=== PATIENT | male | born 1930 | race Caucasian/White ===

== ENCOUNTER 2017-09-04 09:51 | Inpatient (IN) | payer OTHER, MEDICARE ==
[~2017-09-04] VITALS: Ht 172.7 cm; Wt 69.1 kg
[~2017-09-04 09:51] MED LIST: ALLOPURINOL300 M1 PO; AMLODIPINE BESY10 M1 PO; ASPIR 8181 M1 PO; GUANFACINE HCL2 M1 PO; LOVASTATIN40 M1 PO; METFORMIN HCL500 M4 PO; VALSARTAN-HCTZ1 EAC2 PO
--- NOTE | 2017-09-04 09:59 | ED MVC/FALL/TRAUMA COMPLAINT ---
History of Present Illness General Chief Complaint: Fall Stated Complaint: BIBA FALL Source: patient, family, EMS Exam Limitations: poor historian Vital Signs & Intake/Output Vital Signs & Intake/Output Vital Signs Date Time Temp Pulse Resp B/P B/P Pulse O2 O2 Flow FiO2 Mean Ox Delivery Rate 09/04 1252 90 18 160/80 95 Room Air 09/04 1227 97 18 195/88 96 Room Air 09/04 1214 102 178/88 04 1214 97.8 102 18 178/88 95 Room Air 09/04 1105 96 Room Air 09/04 0956 97.9 100 18 182/96 95 Room Air Allergies Coded Allergies: enalapril (UNKNOWN 09/01/15) Reconcile Medications Allopurinol 300 MG TABLET 1 TAB PO DAILY GOUT (Reported) Amlodipine Besylate 10 MG TABLET 1 TAB PO DAILY HEART (Reported) Aspirin (Aspir 81) 81 MG TABLET.DR 1 TAB PO DAILY HEART HEALTH (Reported) Guanfacine HCl 2 MG TABLET 1 TAB PO DAILY HEART (Reported) Lovastatin 40 MG TABLET 1 TAB PO DAILY CHOLESTEROL (Reported) Metformin HCl (Metformin HCl ER) 500 MG TAB.ER.24H 2 TAB PO BID DIABETES ( Reported) Valsartan/Hydrochlorothiazide (Valsartan-Hctz 160-25 MG Tab) 1 EACH TABLET 1 TAB PO DAILY HEART (Reported) Triage Note: 87M RADHA FROM [facility] S/P SLIDE DOWN BED X2 TO FLOOR AT FACILITY. -HEADSTRIKE -LOC AND DENIES ANY COMPLAINTS, PAIN, OR EXPERIENCING HEADACHE/ CP/SOB/PALPITATIONS/ABD PAIN/N/V/D. MILD NEURO DEFICITS AT BASELINE FOR CVA 2015. BP ELEVATED ON ARRIVAL AND NOTED TO HAVE IRREGULAR BRACHIAL PULSE ? ARRHYTHMA. PA NOTIFIED AND PLAN FOR EKG Triage Nurses Notes Reviewed? yes Onset: Just prior to arrival Duration: 2 episodes Timing: recent history Severity: moderate Injuries/Fall Location: upper extremity Method of Injury: fall Loss of Consciousness: no loss of consciousness Modifying Factors: Worsens With: movement, palpation. HPI: Patient is an 87-year-old male with history of hypertension, hyperlipidemia, diabetes and CVA about one and a half years ago presenting to the emergency department from nursing facility with chief complaint of 2 falls since yesterday evening. According to EMS, W 10 patient had a slip and fall yesterday evening where he was sitting on the edge of the bed and slowly lowered to the ground. There is no head strike or LOC according to EMS. This happened again this morning and decided to send the patient in for evaluation. Patient denying any chest pain palpitations or shortness of breath. Denies headaches or visual changes. According to family he has residual deficits from CVA a year and half ago with facial droop, and speech difficulties. Patient reporting left shoulder pain after the fall. Denies neck or back pain. Denies any urinary incontinence or retention. No nausea or vomiting. Denies recent illness. No fevers or chills. (Evelyn Grande) Past History Travel History Traveled to [place] past 21 day No Medical History Any Pertinent Medical History? 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 No (Evelyn Grande) Review of Systems Review of Systems Constitutional: Reports: see HPI, weakness. Comments Review of systems: See HPI, All other systems negative. Constitutional, no chills fever or weight loss HEENT: No visual changes no sore throat no congestion Cardiovascular: No chest pain ,palpitation , orthopnea or ankle swelling Skin, no jaundice no rashes Respiratory: No dyspnea cough sputum or hemoptysis GI: No nausea no vomiting : No dysuria No hematuria Muscle skeletal: no back pain, no neck pain, Neurologic: No numbness no increased confusion Psych: No stress anxiety or depression,. Heme/endocrine: no polyuria or polydipsia, on eliquis Immunology: No splenectomy or history of AIDS (Evelyn Grande) Physical Exam Physical Exam General Appearance: well developed/nourished, no apparent distress, alert, awake , comfortable Comments: Well-developed well-nourished person in no acute distress HEENT: extraocular motion intact, no nystagmus. Pupils equally round and reactive to light and accommodation. pupils approx 2mm bilaterally. slight erythema on left lower eyelid. Nose is atraumatic. External auditory canal and Tympanic membranes clear. Pharynx normal. No swelling or edema. uvula midline. tongue midline. Neck: Supple, no lymphadenopathy, normal range of motion without pain or tenderness, no c spine tenderness. Back: Nontender, no palpable pain noted over the cervical spine, thoracic or lumbar spine. No step-off deformity. No crepitus palpated. No signs of ecchymosis or trauma noted over the back. Cardiovascular: regular rate, irregular rythm. no audbile murmurs. no chest wall tenderness. slight pectus carinatum noted. Respiratory: Chest nontender. No respiratory distress.breath sounds diminished throughout to auscultation bilaterally Abdomen: Soft, nondistended, patient grimaces slightly with palpation in the right upper and lower quadrant. No appreciable organomegaly. Normal bowel sounds. No ascites, no rebound or gaurding. No signs of ecchymosis noted over the abdomen. Extremity: No edema, no calf tenderness to palpation, normal and equal pulses.left arm weakness, 2/5 against resistance. 3/5 in right upper and lower ext bilaterally. facial droop present which is old per family. Neuro: Alert oriented to person, place and time. confused about why he is at the emergency room, left arm weakness on exam, right sided facial droop noted. slurred speech at times. drift of left arm with pronator drift. sensation intact to touch on upper and lower extremities. Skin: Superficial skin abrasion noted to the left antecubital area, approximately 5 cm in size. No active bleeding. Psych: Mood and affect is normal, poor memory. Core Measures ACS in differential dx? Yes CVA/TIA Diagnosis No Sepsis Present: No Sepsis Focused Exam Completed? No (Nicole BRAUN,Evelyn) Progress Differential Diagnosis: cva,tia,sah, electrolyte abnormality, shoudler fx, shoulder dislocation, acs. Plan of Care: Orders Procedure Date/time Status CBC WITHOUT DIFFERENTIAL 09/05 599 Active BASIC ELECTROLYTES PLUS BUN&CR 09/05 599 Active Heart Healthy Diet 09/04 D Active Pathway - chart 09/04 1303 Active XRY-SHOULDER COMPLETE-LEFT 09/04 1204 Active XRY-ELBOW 3 OR MORE VIEWS, L 09/04 1204 Active Patient Data 09/04 1138 Active ED Holding Orders 09/04 1133 Active Admit to inpatient 09/04 1133 Active Vital Signs 09/04 1133 Active Code Status 09/04 1133 Active LIPID PANEL 09/04 1043 Active Intake & Output 09/04 1021 Active Add-on Test (ER Only) 09/04 1000 Active Telemetry/Pan Washer 09/04 958 Active URINALYSIS 09/04 958 Active TROPONIN LEVEL 09/04 958 Active PARTIAL THROMBOPLASTIN TIME 09/04 958 Complete PROTHROMBIN TIME 09/04 958 Complete COMPREHENSIVE METABOLIC PANEL 09/04 958 Active CREATINE PHOSPHOKINASE 09/04 958 Active CBC WITHOUT DIFFERENTIAL 09/04 958 Complete EKG 09/04 958 Active SWALLOW EVALUATION 09/04 UNK Active Lab Add-on Test 09/04 UNK Active VTE Mechanical Prophylaxis 09/04 UNK Active Activity/Ambulation 09/04 UNK Active Laboratory Tests 09/04/17 1257: Triglycerides Cancelled, Cholesterol Cancelled, LDL Cholesterol, Calc Cancelled, HDL Cholesterol Cancelled, Cholesterol/HDL Ratio Cancelled 09/04/17 1043: Anion Gap 11, Estimated GFR > 60, BUN/Creatinine Ratio 28.6 H, Glucose 151 H, Calcium 9.7, Total Bilirubin 0.7, AST 21, ALT 29, Alkaline Phosphatase 115, Creatine Kinase 34 L, Troponin I < 0.01, Total Protein 6.7, Albumin 3.7, Globulin 3.0, Albumin/Globulin Ratio 1.2, Triglycerides Pending, Cholesterol Pending, LDL Cholesterol, Calc Pending, HDL Cholesterol Pending, Cholesterol/HDL Ratio Pending, PT 16.0 H, INR 1.46 H, APTT 39 H, CBC w Diff NO MAN DIFF REQ, RBC 5.44, MCV 82.1, MCH 26.4 L, MCHC 32.1 L, RDW 16.7 H, MPV 9.1, Gran % 82.5 H, Lymphocytes % 9.3 L, Monocytes % 7.9, Eosinophils % 0.1, Basophils % 0.2, Absolute Granulocytes 7.2 H, Absolute Lymphocytes 0.8 L, Absolute Monocytes 0.7 H, Absolute Eosinophils 0, Absolute Basophils 0 09/04/2017 1:16:[address] Duff, covering neurologist regarding patient' s symptomatology and presentation. Recommending housestaff to consult him formally. Unclear when symptoms started exactly as follows unwitnessed. Patient reports that he just went off the bed but is confused as to why he is in the emergency department. Story is not clear. Patient admitted for syncope, hypertension, questionable CVA. d/w dr baker, not a stroke alert due to unknown start time of left arm weakness. Diagnostic Imaging: Viewed by Me: Radiology Read, CT Scan. Discussed w/RAD: Radiology Read, CT Scan. Radiology Impression: PATIENT: ROE HESS PRESENT AGE: 87 PATIENT ACCOUNT NO: [id number] : 30 LOCATION: ER ORDERING PHYSICIAN: Evelyn BRAUN SERVICE DATE: 09/04/17 EXAM TYPE: CAT - CT CERV SPINE WO IV CONTRAST; CT HEAD WO IV CONTRAST EXAMINATION: CT HEAD WITHOUT CONTRAST CT CERVICAL SPINE WITHOUT CONTRAST CLINICAL INFORMATION: Left arm weakness. COMPARISON: None TECHNIQUE: CT of the head and cervical spine were performed without intravenous contrast. Multiplanar reformats were rendered and reviewed. DLP: 902 mGy-cm. FINDINGS: CT head: There is no intracranial hemorrhage, extra-axial collection, or calvarial fracture. There is no mass, mass effect, or CT evidence of large territory infarction. There is moderate scattered hypoattenuation in the bilateral cerebral white matter, which is nonspecific but likely reflects small vessel disease. There is a chronic lacunar infarct in the left putamen. There is mild diffuse brain parenchymal volume loss with prominence of the ventricles and sulci. There is no evidence of hydrocephalus. The paranasal sinuses are clear. The mastoids and middle ear cavities are clear. There are atherosclerotic calcification of the carotid siphons and vertebral arteries. The right sigmoid plate is dehiscent into the mesotympanum. CT cervical spine: The cervical vertebral body heights are maintained. There is multilevel mild stepwise anterolisthesis of C4 on C5, C5 on C6, C6 on C7, and C7 on T1 and related to advanced degenerative facet arthropathy. There is no evidence of traumatic malalignment. The craniovertebral junction is intact. There is multilevel disc height loss including at C4-C5, C5- C6, and C6-C7. There is multilevel facet ankylosis. There is no high-grade osseous encroachment on the spinal canal. There is multilevel neural foraminal stenosis. There are atheromatous changes in the major neck vessels. There is a large right pleural effusion. The left lung apex is clear with paraseptal emphysema noted. IMPRESSION: CT head: No acute intracranial abnormality. Chronic left putamen lacunar infarct and background changes of moderate small vessel ischemia. CT cervical spine: No cervical spine fracture or traumatic malalignment. Advanced multilevel degenerative changes as above. Partially imaged large right pleural effusion. DICTATED BY: Gerri Wood MD DATE/TIME DICTATED:09/04/171048 HVAC SERVICE TECHNICIAN:KAYLEN DATE/TIME TRANSCRIBED:1048 CONFIDENTIAL, DO NOT COPY WITHOUT APPROPRIATE AUTHORIZATION. < Electronically signed in Other Vendor System> SIGNED BY: Gerri Wood MD 09/04/171103, PATIENT: ROE HESS PRESENT AGE: 87 PATIENT ACCOUNT NO: [id number] : 30 LOCATION: [facility] ORDERING PHYSICIAN: William Baker MD SERVICE DATE: 09/04/17 EXAM TYPE: CAT - CT CHEST WO IV CONTRAST EXAMINATION: CT CHEST WITHOUT CONTRAST CLINICAL INFORMATION: White out of right lung. COMPARISON: Chest radiographs 09/01/2015. TECHNIQUE: Multidetector volumetric CT imaging of the chest was done. Axial MIP volume rendering provided. Sagittal and coronal reformatted images were obtained. DLP: 323 mGy-cm FINDINGS: LUNGS/PLEURA: The central airways are patent. There is a large right pleural effusion with associated complete collapse of the right lower lobe. No obstructing endobronchial mass is seen. The right upper and middle lobes are clear. The left lung is clear except for some paraseptal emphysematous change at the apex. There is trace left pleural effusion. MEDIASTINUM: No mediastinal adenopathy. The heart is not enlarged. No mediastinal adenopathy. Atheromatous changes involving the coronary arteries, aortic arch, and great vessel origins. AXILLA: No lymphadenopathy. UPPER ABDOMEN : Nonenhanced evaluation of the upper abdomen is within normal limits. OSSEOUS STRUCTURES: Multilevel degenerative changes in the thoracic spine. No fracture or destructive osseous lesion. IMPRESSION: - Large right pleural effusion with complete collapse of the right lower lobe. No evidence of endobronchial obstructing lesion. Trace left pleural effusion. - Aerated lungs are clear. - No mediastinal adenopathy. DICTATED BY: Gerri Wood MD DATE/TIME DICTATED:09/04 HVAC SERVICE TECHNICIAN:KAYLEN DATE/TIME TRANSCRIBED:09/04/171100 CONFIDENTIAL, DO NOT COPY WITHOUT APPROPRIATE AUTHORIZATION. <Electronically signed in Other Vendor System> SIGNED BY: Gerri Wood MD 09/04/17 1112 Initial ED EKG: AFIB (Evelyn Grande) Departure Departure Time of Disposition: 1205 Clinical Impression Primary Impression: Pleural effusion Secondary Impressions: Arm weakness Hypertension Qualifiers: Hypertension type: unspecified Qualified Code: I10 - Essential ( primary) hypertension Syncope Qualifiers: Syncope type: unspecified Qualified Code: R55 - Syncope and collapse Referrals: George Contreras MD (PCP/Family) Departure Forms: Customer Survey General Discharge Information (Evelyn Grande) Departure Disposition: STILL A PATIENT Condition: Guarded Admission Note Spoke With: Zuleima CAMPBELL,Juanita Documentation of Exam: Documentation of any treatments & extenuating circumstances including Concerns Regarding Discharge (functional status, medication knowledge or non-compliance, living conditions, etc.) that warrant an admission rather than observation: [ TELE ADMISSION, IRDRAIANGE OF EFFUSION ANDSEND FLUID TO LAB FOR CYTOLOGY AND CELL COUNT, PULM CONSULT, CARDIOLOGY CONSULT, SERIAL ENZYMES.] PA/COMPLAINT COORDINATOR Co-Sign Statement Statement: ED Attending supervision documentation- [X] I saw and evaluated the patient. I have also reviewed all the pertinent lab results and diagnostic results. I agree with the findings and the plan of care as documented in the PA's/COMPLAINT COORDINATOR's documentation. [X] I have reviewed the ED Record and agree with the PA's/COMPLAINT COORDINATOR's documentation. [] Additions or exceptions (if any) to the PAs/COMPLAINT COORDINATOR's note and plan are summarized below: [SEE ABOVE NOTE] (Samuel CAMPBELL,William Vieira) Critical Care Note Critical Care Note Critical Care Time: 30-74 min (Evelyn Grande)
[2017-09-04 11:04] LABS: ABSOLUTE BASOPHIL COUNT 0 /CUMM (0.0-0.2); ABSOLUTE EOSINOPHIL COUNT 0 /CUMM (0.0-0.7); ABSOLUTE GRANULOCYTE CT 7.2 /CUMM (1.4-6.5); ABSOLUTE LYMPH COUNT 0.8 /CUMM (1.2-3.4); ABSOLUTE MONOCYTE COUNT 0.7 /CUMM (0.10-0.60); BASOPHIL % 0.2 % (0.0-2.0); EOSINOPHIL % 0.1 % (0-5); GRANULOCYTE % 82.5 % (42.2-75.2); HEMATOCRIT 44.7 % (42-52); MEAN CORPUSCULAR HGB 26.4 PG (27.0-31.0); MEAN CORPUSCULAR HGB CONC 32.1 G/DL (33.0-37.0); MEAN CORPUSCULAR VOLUME 82.1 FL (80.0-94.0); MEAN PLATELET VOLUME 9.1 FL (7.4-10.4); PLATELET COUNT 256 /CUMM (130-400); RBC DISTRIBUTION WIDTH 16.7 % (11.5-14.5); RED BLOOD CELL CT 5.44 /CUMM (4.70-6.10); WHITE BLOOD CELL COUNT 8.7 /CUMM (4.8-10.8)
--- NOTE | 2017-09-04 11:04 | CT SCAN REPORT ---
EXAMINATION: CT HEAD WITHOUT CONTRAST CT CERVICAL SPINE WITHOUT CONTRAST CLINICAL INFORMATION: Left arm weakness. COMPARISON: None TECHNIQUE: CT of the head and cervical spine were performed without intravenous contrast. Multiplanar reformats were rendered and reviewed. DLP: 902 mGy-cm. FINDINGS: CT head: There is no intracranial hemorrhage, extra-axial collection, or calvarial fracture. There is no mass, mass effect, or CT evidence of large territory infarction. There is moderate scattered hypoattenuation in the bilateral cerebral white matter, which is nonspecific but likely reflects small vessel disease. There is a chronic lacunar infarct in the left putamen. There is mild diffuse brain parenchymal volume loss with prominence of the ventricles and sulci. There is no evidence of hydrocephalus. The paranasal sinuses are clear. The mastoids and middle ear cavities are clear. There are atherosclerotic calcification of the carotid siphons and vertebral arteries. The right sigmoid plate is dehiscent into the mesotympanum. CT cervical spine: The cervical vertebral body heights are maintained. There is multilevel mild stepwise anterolisthesis of C4 on C5, C5 on C6, C6 on C7, and C7 on T1 and related to advanced degenerative facet arthropathy. There is no evidence of traumatic malalignment. The craniovertebral junction is intact. There is multilevel disc height loss including at C4-C5, C5-C6, and C6-C7. There is multilevel facet ankylosis. There is no high-grade osseous encroachment on the spinal canal. There is multilevel neural foraminal stenosis. There are atheromatous changes in the major neck vessels. There is a large right pleural effusion. The left lung apex is clear with paraseptal emphysema noted. IMPRESSION: CT head: No acute intracranial abnormality. Chronic left putamen lacunar infarct and background changes of moderate small vessel ischemia. CT cervical spine: No cervical spine fracture or traumatic malalignment. Advanced multilevel degenerative changes as above. Partially imaged large right pleural effusion.
[2017-09-04 11:08] LABS: PTT 39 SEC (25-37)
--- NOTE | 2017-09-04 11:12 | CT SCAN REPORT ---
EXAMINATION: CT CHEST WITHOUT CONTRAST CLINICAL INFORMATION: White out of right lung. COMPARISON: Chest radiographs 09/01/2015. TECHNIQUE: Multidetector volumetric CT imaging of the chest was done. Axial MIP volume rendering provided. Sagittal and coronal reformatted images were obtained. DLP: 323 mGy-cm FINDINGS: LUNGS/PLEURA: The central airways are patent. There is a large right pleural effusion with associated complete collapse of the right lower lobe. No obstructing endobronchial mass is seen. The right upper and middle lobes are clear. The left lung is clear except for some paraseptal emphysematous change at the apex. There is trace left pleural effusion. MEDIASTINUM: No mediastinal adenopathy. The heart is not enlarged. No mediastinal adenopathy. Atheromatous changes involving the coronary arteries, aortic arch, and great vessel origins. AXILLA: No lymphadenopathy. UPPER ABDOMEN: Nonenhanced evaluation of the upper abdomen is within normal limits. OSSEOUS STRUCTURES: Multilevel degenerative changes in the thoracic spine. No fracture or destructive osseous lesion. IMPRESSION: - Large right pleural effusion with complete collapse of the right lower lobe. No evidence of endobronchial obstructing lesion. Trace left pleural effusion. - Aerated lungs are clear. - No mediastinal adenopathy.
--- NOTE | 2017-09-04 11:45 | History & Physical ---
See Addendum General Information and HPI MD Statement: I have seen and personally examined ROE HESS and documented this H&P. The patient is a 87 year old M who presented with a patient stated chief complaint of [fall]. Source of Information: patient, family Exam Limitations: dementia History of Present Illness: Patient is 87 years old male with PMH of HTN, HLD, CVA, DM, [facility] who [facility] from [facility] with the chief complain of fall. As per his sons, he fell twice, *once last night and again this morning). Patient does not remember his fall from the morning. He was discovered by the [facility] house staff on the floor and it is unknwon if he had any loss of consciousness. Family reports that since yesterday, they have noticed that his left side is weaker and his speech is comparetively more slurred. Patient however feels well and does not report of anything. Denies chest pain, difficulty breathing, abdominal discomfort, dizziness, burning micturation etc. Patient is wheel chair bound and was admitted in [facility] last year for ischemic stroke. He was not given any medications at the rehab. Allergies/Medications Allergies: Coded Allergies: enalapril (UNKNOWN 09/01/15) Home Med list Allopurinol 300 MG TABLET 1 TAB PO DAILY GOUT (Reported) Amlodipine Besylate 10 MG TABLET 1 TAB PO DAILY HEART (Reported) Aspirin (Aspir 81) 81 MG TABLET.DR 1 TAB PO DAILY HEART HEALTH (Reported) Guanfacine HCl 2 MG TABLET 1 TAB PO DAILY HEART (Reported) Lovastatin 40 MG TABLET 1 TAB PO DAILY CHOLESTEROL (Reported) Metformin HCl (Metformin HCl ER) 500 MG TAB.ER.24H 2 TAB PO BID DIABETES ( Reported) Valsartan/Hydrochlorothiazide (Valsartan-Hctz 160-25 MG Tab) 1 EACH TABLET 1 TAB PO DAILY HEART (Reported) Compliance With Home Meds: GOOD Past History Travel History Traveled to [place] past 21 day No Medical History Neurological: CVA (2016) EENT: NONE Cardiovascular: hypertension, hyperlipidemia Respiratory: NONE Gastrointestinal: NONE Hepatic: NONE Renal: NONE Musculoskeletal: NONE Psychiatric: NONE Endocrine: diabetes Blood Disorders: NONE Cancer(s): prostate cancer [employer]ELOPMENT/Reproductive: NONE Surgical History Surgical History: non-contributory Past Family/Social History Psychosocial History Where do you live? Extended Care Facility Review of Systems Review of Systems Constitutional: Reports: see HPI. Exam & Diagnostic Data Last 24 Hrs of Vital Signs/I&O Vital Signs Date Time Temp Pulse Resp B/P B/P Pulse O2 O2 Flow FiO2 Mean Ox Delivery Rate 09/04 1252 90 18 160/80 95 Room Air 09/04 1227 97 18 195/88 96 Room Air 09/04 1214 102 178/88 09/04 1214 97.8 102 18 178/88 95 Room Air 09/04 1105 96 Room Air 09/04 0956 97.9 100 18 182/96 95 Room Air Physical Exam General Appearance Alert, Oriented X3, Cooperative Skin tear on left elbow covered with a bandage Skin Temp/Moisture Exam: Warm/Dry HEENT Atraumatic, PERRLA Neck Supple Cardiovascular Normal S1, Normal S2, irregular Lungs dec airmovement on right side, normal breathsounds left side Abdomen Soft, No Tenderness Neurological Normal Speech, decreased strength in left arm and left leg Body Front and Back (Adult) 1) Last 24 Hrs of Labs/Carl: Laboratory Tests 09/04/17 1257: Triglycerides Cancelled, Cholesterol Cancelled, LDL Cholesterol, Calc Cancelled, HDL Cholesterol Cancelled, Cholesterol/HDL Ratio Cancelled 09/04/17 1043: Anion Gap 11, Estimated GFR > 60, BUN/Creatinine Ratio 28.6 H, Glucose 151 H, Calcium 9.7, Total Bilirubin 0.7, AST 21, ALT 29, Alkaline Phosphatase 115, Creatine Kinase 34 L, Troponin I < 0.01, Total Protein 6.7, Albumin 3.7, Globulin 3.0, Albumin/Globulin Ratio 1.2, Triglycerides Pending, Cholesterol Pending, LDL Cholesterol, Calc Pending, HDL Cholesterol Pending, Cholesterol/HDL Ratio Pending, PT 16.0 H, INR 1.46 H, APTT 39 H, CBC w Diff NO MAN DIFF REQ, RBC 5.44, MCV 82.1, MCH 26.4 L, MCHC 32.1 L, RDW 16.7 H, MPV 9.1, Gran % 82.5 H, Lymphocytes % 9.3 L, Monocytes % 7.9, Eosinophils % 0.1, Basophils % 0.2, Absolute Granulocytes 7.2 H, Absolute Lymphocytes 0.8 L, Absolute Monocytes 0.7 H, Absolute Eosinophils 0, Absolute Basophils 0 Assessment/Plan Assessment: Patient is 87 years old male with PMH of HTN, HLD, CVA, DM, a fib on eliquis who was brought in from [facility] with the chief complain of fall. As per his sons, he fell twice, *once last night and again this morning). Patient does not remember his fall from the morning. He was discovered by the nursining house staff on the floor and it is unknwon if he had any loss of consciousness. Vitals on admission BP: 185/88, Pulse 100, saturating above 94% on room air Immiging results: CT Chest: - Large right pleural effusion with complete collapse of the right lower lobe. No evidence of endobronchial obstructing lesion. Trace left pleural effusion. - Aerated lungs are clear. - No mediastinal adenopathy. CT head: No acute intracranial abnormality. Chronic left putamen lacunar infarct and background changes of moderate small vessel ischemia. CT cervical spine: No cervical spine fracture or traumatic malalignment. Advanced multilevel degenerative changes as above. Partially imaged large right pleural effusion. Assessment and plan: Will admit the patient to telemetry. It is difficult to say if his neuro symptoms are new of old as patient clearly can not recall if something has changed. Will hold aspirin for now as he will need an IR guided right side drainage for right sided pleural effusion tomorrow. Will also hold his eliquis. Will continue all home meds including; diltiazem, allopurinol, escitalopram, mirtazipine, tamsulosin, trazodone. will start low does SS and order figer sticks. will put patient on q 4 neuro checks. DVT ppx alps for now Patient is full code As Ranked By This Provider Problem List: 1. Fall Core Measures/Misc (02/13) Acute Coronary Syndrome ACS Diagnosis: No Congestive Heart Failure Congestive Heart Failure Diagnosis No Cerebrovascular Accident CVA/TIA Diagnosis: No VTE (View Protocol) VTE Risk Factors Age>40 No Mechanical VTE Prophylaxis d/t N/A MechProphylax Ordered No VTE Pharm Prophylaxis d/t NA PharmProphylax ordered Sepsis (View protocol) Sepsis Present: No
--- NOTE | 2017-09-04 13:08 | Admission Certification ---
Admission Certification Certification Statement - As attending physician, I certify that at the time of - admission, based on clinical presentation, severity of - symptoms, need for further diagnostic testing and - therapeutic interventions, and risk of adverse outcomes - without in-hospital treatment, in my clinical assessment, - this patient requires an acute hospital stay for a minimum - of two nights or longer. I have also considered psychsocial - factors such as support system, advanced age, financial - issues, cognitive issues, and failed out-patient treatments, - past re-admission history, safety of patient, and lack of - compliance as applicable. Specific rationale supporting this admission is: large right loculated pleural effusion
--- NOTE | 2017-09-04 13:20 | PN- Att Addend ---
Attending Addendum Attending Brief Note Patient seen and examined. Plan of care discussed with the medical team and the patient. Available lab work and radiology test reports were reviewed. Patient is an 87-year-old male with history of hypertension, hyperlipidemia, diabetes and CVA about one and a half years ago presenting to the emergency department from nursing facility with chief complaint of 2 falls since yesterday evening. During evaluation a CT scan of the chest showed a right large loculated effusion. Exam: General: Patient awake but lethargic and partially oriented without any distress CVS: S1 plus S2 without any murmur or gallops Chest: Right chest is dull to percussion , Few scattered crepitation without any wheeze. There is no respiratory distress. Abdomen: Soft non-tender, bowel sound present, no guarding or rebound SQL REPORT ANALYST: Awake lethargic and partially oriented; persistent facial droop is noted; Extremities: No edema; no clubbing or cyanosis noted Assessment * Multiple falls * History of CVA * Right-sided loculated effusion- etiology could include CHF, hemothorax, malignancy etc. * History of A. fib currently on eliquis Plan * Hold eliquis in anticipation of right thoracentesis * Neurology consult for concerns with worsening symptoms of stroke * Continue other home medications * Add Lipitor * Arrange for right thoracentesis Current Medications Sig/Jose Angel Start time Last Medication Dose Route Stop Time Status Admin Hydralazine HCl 5 MG ONCE ONE 09/04 1215 DC 09/04 IV 09/04 1216 1214 Hydralazine HCl 0 .STK-MED ONE 09/04 1214 DC .ROUTE Laboratory Tests 09/04/17 1257: Triglycerides Cancelled, Cholesterol Cancelled, LDL Cholesterol, Calc Cancelled, HDL Cholesterol Cancelled, Cholesterol/HDL Ratio Cancelled 09/04/17 1043: Anion Gap 11, Estimated GFR > 60, BUN/Creatinine Ratio 28.6 H, Glucose 151 H, Calcium 9.7, Total Bilirubin 0.7, AST 21, ALT 29, Alkaline Phosphatase 115, Creatine Kinase 34 L, Troponin I < 0.01, Total Protein 6.7, Albumin 3.7, Globulin 3.0, Albumin/Globulin Ratio 1.2, PT 16.0 H, INR 1.46 H, APTT 39 H, CBC w Diff NO MAN DIFF REQ, RBC 5.44, MCV 82.1, MCH 26.4 L, MCHC 32.1 L, RDW 16.7 H, MPV 9.1, Gran % 82.5 H, Lymphocytes % 9.3 L, Monocytes % 7.9, Eosinophils % 0.1, Basophils % 0.2, Absolute Granulocytes 7.2 H, Absolute Lymphocytes 0.8 L, Absolute Monocytes 0.7 H, Absolute Eosinophils 0, Absolute Basophils 0 Vital Signs Date Time Temp Pulse Resp B/P B/P Pulse O2 O2 Flow FiO2 Mean Ox Delivery Rate 09/04 1252 90 18 160/80 95 Room Air 09/04 1227 97 18 195/88 96 Room Air 09/04 1214 102 178/88 09/04 1214 97.8 102 18 178/88 95 Room Air 09/04 1105 96 Room Air 09/04 0956 97.9 100 18 182/[address] Chest Patient is an 87-year-old male with history of hypertension, hyperlipidemia, diabetes and CVA about one and a half years ago presenting to the emergency department from nursing facility with chief complaint of 2 falls since yesterday evening. CT head: No acute intracranial abnormality. Chronic left putamen lacunar infarct and background changes of moderate small vessel ischemia. CT cervical spine: No cervical spine fracture or traumatic malalignment. Advanced multilevel degenerative changes as above. Partially imaged large right pleural effusion.
--- NOTE | 2017-09-04 14:54 | RADIOLOGY REPORT ---
EXAMINATION: XR SHOULDER, LEFT XR ELBOW, LEFT CLINICAL INFORMATION: Pain, status post fall. COMPARISON: Chest CT scan earlier today. TECHNIQUE: 3 views of the left shoulder were obtained. 3 views of the left elbow were obtained. FINDINGS: LEFT SHOULDER: No acute fracture or dislocation demonstrated. The humeral head appears well aligned with the glenoid. Mild hypertrophic changes at the glenohumeral joint. No widening of the acromioclavicular joint. Chronic-appearing calcific focus along the cephalad aspect of the acromioclavicular joint. Decreased bone mineral density. LEFT ELBOW: No fracture or dislocation. No significant cartilage space narrowing. Mild hypertrophic changes along the medial and lateral humeral epicondyles. Decreased bone mineral density. No significant elevation of the anterior posterior fat pads demonstrated. Possible focus of subcutaneous gas along the posterior elbow; please correlate for laceration. IMPRESSION: 1. No acute osseous abnormalities of the left shoulder or left elbow. 2. Suspect a focus of subcutaneous gas along the posterior elbow. Please correlate for local laceration. 3. Decreased bone mineral density. If there is high clinical suspicion for fracture, consider further evaluation with MRI or CT scan to assess for radiographically occult osseous injury.
--- NOTE | 2017-09-04 15:24 | Cons- Neurology ---
General Information and HPI Consulting Request Date of Consult: 09/04/17 Requested By: Zuleima CAMPBELL,Juanita History of Present Illness: 87 year-old male brought in from an extended care facility reportedly due to heightened left-sided weakness of one-day duration. Patient carries a history of prior CVA. The extent of his residual weakness is unclear and the patient is an extremely poor historian. We do know that he is wheelchair bound. Upon arrival to the emergency department he was also found to have a large pleural effusion and therefore he is being admitted for further evaluation and treatment. The patient denies any headache. He has had 2 reported falls over the last 36 hours. Allergies/Medications Allergies: Coded Allergies: enalapril (UNKNOWN 09/01/15) Home Med List: Allopurinol 300 MG TABLET 1 TAB PO DAILY GOUT (Reported) Amlodipine Besylate 10 MG TABLET 1 TAB PO DAILY HEART (Reported) Aspirin (Aspir 81) 81 MG TABLET.DR 1 TAB PO DAILY HEART HEALTH (Reported) Guanfacine HCl 2 MG TABLET 1 TAB PO DAILY HEART (Reported) Lovastatin 40 MG TABLET 1 TAB PO DAILY CHOLESTEROL (Reported) Metformin HCl (Metformin HCl ER) 500 MG TAB.ER.24H 2 TAB PO BID DIABETES ( Reported) Valsartan/Hydrochlorothiazide (Valsartan-Hctz 160-25 MG Tab) 1 EACH TABLET 1 TAB PO DAILY HEART (Reported) Review of Systems Review of Systems: Limited due to his mental status Past History Travel History Traveled to [place] past 21 day No Medical History Neurological: CVA (2016) EENT: NONE Cardiovascular: hypertension, hyperlipidemia Respiratory: NONE Gastrointestinal: NONE Hepatic: NONE Renal: NONE Musculoskeletal: NONE Psychiatric: NONE Endocrine: diabetes Blood Disorders: NONE Cancer(s): 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 Extended Care Facility Exam & Diagnostic Data Vital Signs and I&O Vital Signs Date Time Temp Pulse Resp B/P B/P Pulse O2 O2 Flow FiO2 Mean Ox Delivery Rate 09/04 1252 90 18 160/80 95 Room Air 09/04 1227 97 18 195/88 96 Room Air 09/04 1214 102 178/88 09/04 1214 97.8 102 18 178/88 95 Room Air 09/04 1105 96 Room Air 09/04 0956 97.9 100 18 182/96 95 Room Air Elderly male, awake, alert and in no acute distress. He was disoriented to time. He knew that he was in [facility]. He could not name the current president. Speech was fluent. Pupils were equal. Extraocular movements were full. There was flattening of the right nasolabial fold. There was no dysarthria. Motor examination revealed significant weakness of the left upper extremity. He could not resist gravity. There appeared to be mild weakness of the proximal left lower extremity. Deep tendon reflexes were hypoactive. Plantar responses were flexor. The gait was not evaluated. CAT scan of the brain on admission just showed the presence of a small left subcortical infarct of indeterminate age. 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 Assessment/Plan Assessment: Mr. Cornejo presents with reportedly heightened left-sided weakness. He indeed has marked weakness of the left upper extremity. Curiously, if this were due to an old stroke, we do not see any significant abnormalities in the right hemisphere. His examination now also suggests associated dementia. I question as to whether this is chronic Recommendations: The patient will be admitted for workup of his pleural effusion and would also merit an MRI of the brain. Physical and occupational therapy should be asked to assist. DVT precautions should be put into place. He should be maintained on a statin and aspirin. Would get a TSH and B12 level. Old records would be helpful to establish his baseline. Consult Acknowledgment - Thank you for your consult request.
[2017-09-04 15:30] VITALS: BP 160/80
[2017-09-04 21:07] VITALS: BP 140/80
[2017-09-05 07:01] VITALS: BP 116/64
--- NOTE | 2017-09-05 07:17 | PN- Housestaff ---
[place] CAMPBELL,[facility] 09/05/17 0716: Subjective Follow-up For: Multiple falls History of CVA Tele-Events Since Last Visit: A Fib 44-89 Subjective: Mr Cornejo was seen and examined this morning. He is resting comfortably in bed. Denies any issues overnight. He was able to get some rest. Currently awaiting to undergo further testing (MRI scheduled) for later today. He denies any fever, chills, nausea, vomiting. Has not attempted to move from bed denies any lightheadedness or weakness. He is currently nothing by mouth pending a formal swallow evaluation. Spoke extensively with family, 2 sons, grandson, daughter in law they were updated on the plan. Review of Systems Constitutional: Reports: see HPI. Objective Last 24 Hrs of Vital Signs/I&O Vital Signs Date Time Temp Pulse Resp B/P B/P Pulse O2 O2 Flow FiO2 Mean Ox Delivery Rate 09/05 0701 97.4 63 12 116/64 95 Room Air 09/05 0000 Room Air 09/04 2245 97 152/90 09/04 2107 98.2 113 20 140/80 95 Room Air 09/04 1848 114 08 1848 114 09/04 1600 Room Air 09/04 1530 98.3 100 20 160/80 95 Room Air 09/04 1252 90 18 160/80 95 Room Air 09/04 1227 97 18 195/88 96 Room Air 09/04 1214 102 178/88 09/04 1214 97.8 102 18 178/88 95 Room Air 09/04 1105 96 Room Air 09/04 0956 97.9 100 18 182/96 95 Room Air Intake & Output 09/05 1600 09/05 0800 09/05 0000 Intake Total 0 250 Output Total Balance 0 250 Intake, Oral 0 250 Number 3 Bowel Movements Patient 69.967 kg Weight Weight Bed scale Measurement Method Physical Exam General Appearance: Alert, Oriented X3, Cooperative Cardiovascular: Normal S1, Normal S2, Irregular HR Lungs: Clear to Auscultation Abdomen: Normal Bowel Sounds, Soft, No Tenderness Neurological: Normal Speech, Cranial Nerves 3-12 NL, Right Upper extemity 4/5 Right lower extremity 4/5. Left Upper Extemity 1/5 Left Lower Extety 1/5 Extremities: No Edema Current Medications: Current Medications Sig/Jose Angel Start time Last Medication Dose Route Stop Time Status Admin Allopurinol 100 MG DAILY 09/04 1336 AC 09/04 PO 1848 Artificial Tears 2 GTT 4 TIMES/DAY 09/04 1400 AC 09/04 OPH 2230 Atorvastatin Calcium 80 MG 1700 09/05 1700 AC PO Diltiazem HCl 90 MG Q6 09/04 2359 AC 09/05 PO 0600 Diltiazem HCl 180 MG BID 09/04 1335 DC 09/04 PO 1848 Hydralazine HCl 5 MG ONCE ONE 09/04 1215 DC 09/04 IV 09/04 1216 1214 Hydralazine HCl 0 .STK-MED ONE 09/04 1214 DC .ROUTE Influenza Virus 0.5 ML ONCE ONE 09/04 1630 CAN Vaccine IM 09/05 1999 Insulin Aspart 0 TIDAC 09/04 1700 AC SC Magnesium Oxide 200 MG DAILY 09/04 1335 AC 09/04 PO 1848 Mirtazapine 7.5 MG AT BEDTIME 09/04 2200 AC 09/04 PO 2228 Senna/Docusate Sodium 2 TAB DAILY 09/05 1000 AC PO Tamsulosin HCl 0.4 MG DAILY 09/04 1334 AC 09/04 PO 1848 Trazodone HCl 37.5 MG AT BEDTIME 09/04 2200 AC 09/04 PO 2230 Last 24 Hrs of Lab/Carl Results Last 24 Hrs of Labs/Mics: Laboratory Tests 09/05/17 0638: Anion Gap 12, Estimated GFR > 60, BUN/Creatinine Ratio 27.1 H, CBC w Diff NO MAN DIFF REQ, RBC 5.00, MCV 82.1, MCH 27.0, MCHC 32.8 L, RDW 17.0 H, MPV 9.5, Gran % 73.1, Lymphocytes % 14.3 L, Monocytes % 11.3 H, Eosinophils % 0.7, Basophils % 0.6, Absolute Granulocytes 5.5, Absolute Lymphocytes 1.1 L, Absolute Monocytes 0.9 H, Absolute Eosinophils 0.1, Absolute Basophils 0 09/04/17 1257: Triglycerides Cancelled, Cholesterol Cancelled, LDL Cholesterol, Calc Cancelled, HDL Cholesterol Cancelled, Cholesterol/HDL Ratio Cancelled 09/04/17 1043: Anion Gap 11, Estimated GFR > 60, BUN/Creatinine Ratio 28.6 H, Glucose 151 H, Calcium 9.7, Total Bilirubin 0.7, AST 21, ALT 29, Alkaline Phosphatase 115, Creatine Kinase 34 L, Troponin I < 0.01, Ksp-D-Sgfevehqgca Pept 2390 H, Total Protein 6.7, Albumin 3.7, Globulin 3.0, Albumin/Globulin Ratio 1.2, Triglycerides 82, Cholesterol 192, LDL Cholesterol, Calc 113, HDL Cholesterol 63 H, Cholesterol/HDL Ratio 3, Vitamin B12 357, TSH 1.740, PT 16.0 H, INR 1.46 H , APTT 39 H, CBC w Diff NO MAN DIFF REQ, RBC 5.44, MCV 82.1, MCH 26.4 L, MCHC 32.1 L, RDW 16.7 H, MPV 9.1, Gran % 82.5 H, Lymphocytes % 9.3 L, Monocytes % 7.9, Eosinophils % 0.1, Basophils % 0.2, Absolute Granulocytes 7.2 H, Absolute Lymphocytes 0.8 L, Absolute Monocytes 0.7 H, Absolute Eosinophils 0, Absolute Basophils 0 Assessment/Plan Assessment: Patient is 87 year old male with PMH of HTN, HLD, CVA, DM, a fib on eliquis who was brought in from [facility] with the chief complain of fall. 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 Patient does not remember his fall from the morning. He was discovered by the [facility] house staff on the floor and it is unknown if he had any loss of consciousness. Assessment and plan: Will admit the patient to telemetry. It is difficult to say if his neuro symptoms are new of old as patient clearly can not recall if something has changed. -Pending results of MRI study scheduled for later today. -Continue aspirin. -Continue statin. -Will also hold his eliquis, medication needs to be held for 2 days. He last took this medication on 09/04/2017. Thoracocentesis scheduled for 09/07/2018. -Will continue all home meds including; diltiazem, allopurinol, escitalopram, mirtazipine, tamsulosin, trazodone. -will start low does SS and order figer sticks. If hypoglycemic will consider fluid supplementation. D5 half-normal -Continue q 4 neuro checks. -Currently nothing by mouth Will advance diet once formal swallow evaluation has been obtained. Patient does not have to be nothing by mouth for thoracocentesis scheduled for 09/07/2017. -DVT ppx alps for now -Patient is full code Problem List: 1. Fall 2. Arm weakness 3. Syncope 4. Pleural effusion Pain Ratin Pain Location: No Pain Endorsed Pain Goal: Remain pain free Pain Plan: Tyelnol Tomorrow's Labs & Rationales: No CBC needed BEP: Monitor Electrolytes Silverio Reynoso 09/05/17 1100: Attending MD Review Statement Attending Statement Attending MD Statement: examined this patient, discuss w/resident/PA/ROAD MAKER, agreed w/resident/PA/ROAD MAKER, discussed with family, reviewed EMR data (avail), discussed with nursing, discussed with case mgmt, reviewed images, amended to note Attending Assessment/Plan: Patient seen/examined bedside. No new compliants. Has residual deficit. Vitals stable. Assessment 1. Multiple falls 2. History of CVA 3. Right-sided effusion- etiology could include CHF, hemothorax, malignancy etc. 4. History of A. fib currently on eliquis 5. Generalsoed physical deconditioing. Plan Held eliquis in anticipation of right thoracentesis, discussd with family who wants to pursue work up. Neurology consulted and recommend MRI brain pending today. Continue other home medications, added Lipitor Awaiting thoracocentesis by IR.
[2017-09-05 07:59] LABS: ABSOLUTE BASOPHIL COUNT 0 /CUMM (0.0-0.2); ABSOLUTE EOSINOPHIL COUNT 0.1 /CUMM (0.0-0.7); ABSOLUTE GRANULOCYTE CT 5.5 /CUMM (1.4-6.5); ABSOLUTE LYMPH COUNT 1.1 /CUMM (1.2-3.4); ABSOLUTE MONOCYTE COUNT 0.9 /CUMM (0.10-0.60); BASOPHIL % 0.6 % (0.0-2.0); EOSINOPHIL % 0.7 % (0-5); GRANULOCYTE % 73.1 % (42.2-75.2); MEAN CORPUSCULAR HGB CONC 32.8 G/DL (33.0-37.0); MEAN CORPUSCULAR VOLUME 82.1 FL (80.0-94.0); MEAN PLATELET VOLUME 9.5 FL (7.4-10.4); PLATELET COUNT 238 /CUMM (130-400); WHITE BLOOD CELL COUNT 7.6 /CUMM (4.8-10.8)
[2017-09-05 15:30] VITALS: BP 132/60
--- NOTE | 2017-09-05 15:39 | RADIOLOGY REPORT ---
EXAMINATION: XR MODIFIED BARIUM SWALLOW CLINICAL INFORMATION: History of stroke in the past. Multiple falls at facility. Bedside screen unsuccessful this a.m. Rule out aspiration versus acute swallowing pathology. COMPARISON: None. TECHNIQUE: A modified barium swallow was performed with speech pathologist in attendance. Pur?e, honey thick, nectar thick, thin, bread, and cracker consistencies were given to the patient and the swallowing mechanism was observed fluoroscopically with several spot films taken using the last image hold feature. FLUOROSCOPY TIME: 2 minutes 19 seconds. FINDINGS: Small amount of residual is seen in the valleculae with the puree consistency and severe residual is seen in the valleculae with thin liquid consistencies. There is premature spillage of contrast into the piriform sinuses with honey. With honey and thin consistency, silent penetration of contrast is also noted. Bread and cracker consistencies were tolerated well with no significant abnormality seen. IMPRESSION: 1. Silent penetration of contrast noted with honey and thin consistencies. No mony aspiration seen. 2. Mildly disordered swallowing with other consistencies as discussed above. 3. Speech pathologist assessment issued separately.
--- NOTE | 2017-09-05 16:22 | MRI REPORT ---
EXAMINATION: MR BRAIN WITHOUT CONTRAST CLINICAL INFORMATION: Weakness, left-sided. Assess for stroke. COMPARISON: CT scans of the head 09/04/2017 and 09/01/2015. TECHNIQUE: MRI of the brain without contrast was obtained using routine sequences. FINDINGS: There is a small area of restricted diffusion in the right posterior basal ganglia extending to the right periventricular region, consistent with an acute infarct. It has corresponding increased T2 and FLAIR signal. There is no evidence of hemorrhagic transformation of the infarct. No other areas of restricted diffusion are demonstrated. The ventricles and sulci are commensurately prominent consistent with moderate diffuse volume loss. There is extensive increased T2 and FLAIR signal in the periventricular and subcortical white matter, as well as within the martha and cerebellar vermis. There are bilateral basal ganglia lacunar infarcts, most prominent in the left putamen. There are no extra-axial fluid collections. No pathologic susceptibility artifact is seen on the gradient images. The craniovertebral junction, marrow signal, and midline structures are normal. 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 There has been a right lens extraction. The major intracranial flow-voids at the level of the [place] are preserved. The dural venous sinus flow-voids are maintained. The mastoid air cells and paranasal sinuses are well-aerated. The nasal septum is deviated to the right and there is a right-sided bony nasal septal spur. IMPRESSION: 1. There is an area of acute infarction in the right basal ganglia and right periventricular region. There is no evidence of hemorrhage. 2. The ventricles and sulci are commensurately prominent consistent with diffuse volume loss, and there are extensive chronic microvascular ischemic changes and lacunar infarcts as described above. 3. This critical result was discussed with Racheal Felder by telephone on 09/05/2017 at 3:45 PM and it was ascertained that the content and urgency of the report was understood at the time of direct communication.
--- NOTE | 2017-09-05 16:27 | Event Note ---
Event Note Event Note: S Informed of MRI Findings: Area of acute infarction in the right basal ganglia and right periventricular region. There is no evidence of hemorrhage. B: Pateint admitted for Multiple falls, History of CVA A/R Spoke with Neuologist Dr Duff, who was updated. Formal reccomendations to follow. Bjis Currently on hold due to (thoracocentesis on 09/07) OT and PT recommended Attending Dr Reynoso informed.
--- NOTE | 2017-09-05 20:42 | Cons- Cardiology ---
General Information and HPI Consulting Request Date of Consult: 09/05/17 Requested By: Zuleima CAMPBELL,Juanita Reason for Consult: Atrial fibrillation History of Present Illness: The patient is an 87-year-old male with history of hypertension, hyperlipidemia, CVA, diabetes mellitus, and atrial fibrillation who was admitted from [facility] after a fall. He is reportedly anticoagulated on Eliquis, however Eliquis is not listed in the CMR or admission medication list. He was found by the shelter staff on the floor and was unknown whether he had lost consciousness. Since yesterday, his family has noted that his left side is weaker in his speech is more slurred. The patient reported that he was feeling well and did not have any new complaints. No chest pain. No shortness of breath. No palpitations. No diaphoresis. No lightheadedness or dizziness. No nausea or vomiting Allergies/Medications Allergies: Coded Allergies: enalapril (UNKNOWN 09/01/15) Home Med List: Allopurinol 300 MG TABLET 1 TAB PO DAILY GOUT (Reported) Amlodipine Besylate 10 MG TABLET 1 TAB PO DAILY HEART (Reported) Aspirin (Aspir 81) 81 MG TABLET.DR 1 TAB PO DAILY HEART HEALTH (Reported) Guanfacine HCl 2 MG TABLET 1 TAB PO DAILY HEART (Reported) Lovastatin 40 MG TABLET 1 TAB PO DAILY CHOLESTEROL (Reported) Metformin HCl (Metformin HCl ER) 500 MG TAB.ER.24H 2 TAB PO BID DIABETES ( Reported) Valsartan/Hydrochlorothiazide (Valsartan-Hctz 160-25 MG Tab) 1 EACH TABLET 1 TAB PO DAILY HEART (Reported) Current Medications: Current Medications Sig/Jose Angel Start time Last Medication Dose Route Stop Time Status Admin Allopurinol 100 MG DAILY 09/04 1336 AC 09/05 PO 1223 Artificial Tears 2 GTT 4 TIMES/DAY 09/04 1400 AC 09/05 OPH 1740 Aspirin 81 MG DAILY 09/05 1000 AC 09/05 PO 1223 Atorvastatin Calcium 80 MG 1700 09/05 1700 AC 09/05 PO 1739 Diltiazem HCl 90 MG Q6 09/04 2359 AC 09/05 PO 1739 Diltiazem HCl 180 MG BID 09/04 1335 DC 09/04 PO 1848 Insulin Aspart 0 TIDAC 09/04 1700 AC SC Magnesium Oxide 200 MG DAILY 09/04 1335 AC 09/05 PO 1223 Mirtazapine 7.5 MG AT BEDTIME 09/04 2200 AC 09/04 PO 2228 Patient Medication 1 ED ONE ONE 09/05 1500 DC Teaching ED 09/05 1501 Senna/Docusate Sodium 2 TAB DAILY 09/05 1000 AC 09/05 PO 1223 Tamsulosin HCl 0.4 MG DAILY 09/04 1334 AC 09/05 PO 1223 Trazodone HCl 37.5 MG AT BEDTIME 09/04 2200 AC 09/04 PO 2230 Review of Systems Review of Systems: No fever. No chills. No rash. No trauma. All other systems were reviewed, and were noted to be negative. Past History Travel History Traveled to [place] past 21 day No Medical History Neurological: CVA (2016) EENT: NONE Cardiovascular: hypertension, hyperlipidemia Respiratory: NONE Gastrointestinal: NONE Hepatic: NONE Renal: NONE Musculoskeletal: NONE Psychiatric: NONE Endocrine: diabetes Blood Disorders: NONE Cancer(s): prostate cancer [employer]/Reproductive: NONE Surgical History Surgical History: non-contributory Family History Family History Reviewed? Family history was reviewed with the patient and is negative for any factors contributing to the current admission. Psychosocial History [facility] Smoking Status: Unknown If Ever Smoked Exam & Diagnostic Data Vital Signs and I&O Vital Signs Date Time Temp Pulse Resp B/P B/P Pulse O2 O2 Flow FiO2 Mean Ox Delivery Rate 09/05 1530 98.4 79 16 132/60 95 Room Air 09/05 1223 66 116/70 09/05 0800 Room Air 09/05 0701 97.4 63 12 116/64 95 Room Air 09/05 0000 Room Air 09/04 2245 97 152/90 09/04 2107 98.2 113 20 140/80 95 Room Air Intake & Output 09/05 1600 09/05 0800 09/05 0000 09/04 1600 09/04 0809/04 0000 Intake Total 50 0 250 Output Total Balance 50 0 250 Intake, IV 20 Intake, Oral 30 0 250 Number 3 Bowel Movements Patient 154 lb 154 lb Weight Weight Bed scale Measurement Method Physical Exam: Gen: The patient is in no acute distress HEENT: Normal nose, ears, and oropharynx. Pupils equal bilaterally. Conjunctiva normal. Neck: Supple with no JVD, no masses, and no thyromegaly Lungs: Clear to auscultation with normal respiratory effort Heart: Irregularly irregular, S1, S2, no murmurs. No peripheral edema, 2+ pulses in the lower extremities bilaterally Abdomen: Soft, nontender, no masses. No hepatomegaly. No splenomegaly Extremities: No clubbing or cyanosis. Left upper and lower externally weakness Skin: Normal skin turgor with no skin ulcers or lesions noted. Neuro: Cranial nerves intact. Sensation intact Psych: Alert and oriented x 3 with appropriate affect Labs/Carl Results: Laboratory Tests 09/05 09/04 0638 1257 Chemistry Sodium (137 - 145 mmol/L) 141 Potassium (3.5 - 5.1 mmol/L) 4.0 Chloride (98 - 107 mmol/L) 103 Carbon Dioxide (22 - 30 mmol/L) 25 Anion Gap (5 - 16) 12 BUN (9 - 20 mg/dL) 19 Creatinine (0.7 - 1.2 mg/dL) 0.7 Estimated GFR (>60 ml/min) > 60 BUN/Creatinine Ratio (7 - 25 %) 27.1 H Triglycerides Cancelled Cholesterol Cancelled LDL Cholesterol, Calc Cancelled HDL Cholesterol Cancelled Cholesterol/HDL Ratio Cancelled Hematology CBC w Diff NO MAN DIFF REQ WBC (4.8 - 10.8 /CUMM) 7.6 RBC (4.70 - 6.10 /CUMM) 5.00 Hgb (14.0 - 18.0 G/DL) 13.5 L Hct (42 - 52 %) 41.0 L MCV (80.0 - 94.0 FL) 82.1 MCH (27.0 - 31.0 PG) 27.0 MCHC (33.0 - 37.0 G/DL) 32.8 L RDW (11.5 - 14.5 %) 17.0 H Plt Count (130 - 400 /CUMM) 238 MPV (7.4 - 10.4 FL) 9.5 Gran % (42.2 - 75.2 %) 73.1 Lymphocytes % (20.5 - 51.1 %) 14.3 L Monocytes % (1.7 - 9.3 %) 11.3 H Eosinophils % (0 - 5 %) 0.7 Basophils % (0.0 - 2.0 %) 0.6 Absolute Granulocytes (1.4 - 6.5 /CUMM) 5.5 Absolute Lymphocytes (1.2 - 3.4 /CUMM) 1.1 L Absolute Monocytes (0.10 - 0.60 /CUMM) 0.9 H Absolute Eosinophils (0.0 - 0.7 /CUMM) 0.1 Absolute Basophils (0.0 - 0.2 /CUMM) 0 09/04 09/04 1043 0959 Chemistry Sodium (137 - 145 mmol/L) 142 Potassium (3.5 - 5.1 mmol/L) 4.2 Chloride (98 - 107 mmol/L) 101 Carbon Dioxide (22 - 30 mmol/L) 29 Anion Gap (5 - 16) 11 BUN (9 - 20 mg/dL) 20 Creatinine (0.7 - 1.2 mg/dL) 0.7 Estimated GFR (>60 ml/min) > 60 BUN/Creatinine Ratio (7 - 25 %) 28.6 H Glucose (65 - 99 mg/dL) 151 H Calcium (8.4 - 10.2 mg/dL) 9.7 Total Bilirubin (0.2 - 1.3 mg/dL) 0.7 AST (17 - 59 U/L) 21 ALT (21 - 72 U/L) 29 Alkaline Phosphatase (< 127 U/L) 115 Creatine Kinase (55 - 170 U/L) 34 L Troponin I (<0.11 ng/ml) < 0.01 Pjw-[id number]-Eamojotqitu Pept (<125 pg/mL) 2390 H Total Protein (6.3 - 8.2 g/dL) 6.7 Albumin (3.5 - 5.0 g/dL) 3.7 Globulin (1.9 - 4.2 gm/dL) 3.0 Albumin/Globulin Ratio (1.1 - 2.2 %) 1.2 Triglycerides (<150 mg/dL) 82 Cholesterol (< 200 MG/DL) 192 LDL Cholesterol, Calc (65 - 129 mg/dL) 113 HDL Cholesterol (40 - 60 mg/dL) 63 H Cholesterol/HDL Ratio (0.00 - 4.88 %) 3 Vitamin B12 (239 - 931 pg/mL) 357 TSH (0.270 - 4.200 uIU/mL) 1.740 Coagulation PT (9.4 - 12.5 SEC) 16.0 H INR (0.90 - 1.17) 1.46 H APTT (25 - 37 SEC) 39 H Hematology CBC w Diff NO MAN DIFF REQ WBC (4.8 - 10.8 /CUMM) 8.7 RBC (4.70 - 6.10 /CUMM) 5.44 Hgb (14.0 - 18.0 G/DL) 14.3 Hct (42 - 52 %) 44.7 MCV (80.0 - 94.0 FL) 82.1 MCH (27.0 - 31.0 PG) 26.4 L MCHC (33.0 - 37.0 G/DL) 32.1 L RDW (11.5 - 14.5 %) 16.7 H Plt Count (130 - 400 /CUMM) 256 MPV (7.4 - 10.4 FL) 9.1 Gran % (42.2 - 75.2 %) 82.5 H Lymphocytes % (20.5 - 51.1 %) 9.3 L Monocytes % (1.7 - 9.3 %) 7.9 Eosinophils % (0 - 5 %) 0.1 Basophils % (0.0 - 2.0 %) 0.2 Absolute Granulocytes (1.4 - 6.5 /CUMM) 7.2 H Absolute Lymphocytes (1.2 - 3.4 /CUMM) 0.8 L Absolute Monocytes (0.10 - 0.60 /CUMM) 0.7 H Absolute Eosinophils (0.0 - 0.7 /CUMM) 0 Absolute Basophils (0.0 - 0.2 /CUMM) 0 Urines Urine Color Cancelled Urine Clarity Cancelled Urine pH Cancelled Ur Specific [place] Cancelled Urine Protein Cancelled Urine Ketones Cancelled Urine Nitrite Cancelled Urine Bilirubin Cancelled Urine Urobilinogen Cancelled Ur Leukocyte Esterase Cancelled Ur Microscopic Cancelled Urine Hemoglobin Cancelled Urine Glucose Cancelled Diagnostic Data EKG Results EKG tracing is independently reviewed, and reveals atrial fibrillation with ventricular response of 91, premature ventricular complexes, low voltage in the frontal leads Other Results CT scan of the chest: - Large right pleural effusion with complete collapse of the right lower lobe. No evidence of endobronchial obstructing lesion. Trace left pleural effusion. - Aerated lungs are clear. - No mediastinal adenopathy. MRI of the head: 1. There is an area of acute infarction in the right basal ganglia and right periventricular region. There is no evidence of hemorrhage. 2. The ventricles and sulci are commensurately prominent consistent with diffuse volume loss, and there are extensive chronic microvascular ischemic changes and lacunar infarcts as described above. Assessment/Plan Assessment/Plan Assessment: 1. Atrial fibrillation, apparently anticoagulated on Eliquis. Ventricular rate under control on oral diltiazem 2. Acute CVA Recommendations: * Echocardiogram * Carotid Doppler study * Continue aspirin and statin * Treatment of acute stroke as per neurology. * Anticoagulation on hold because of acute CVA. Would restart Eliquis once cleared by neurology to restart anticoagulation Consult Acknowledgment - Thank you for your consult request.
[2017-09-05 22:47] VITALS: BP 132/60
[2017-09-06 06:49] VITALS: BP 140/66
--- NOTE | 2017-09-06 07:10 | PN- Housestaff ---
[place] CAMPBELL,[facility] 09/06/17 0710: Subjective Follow-up For: Multiple Falls Subjective: Mr Cornejo was seen and examined this morning. Resting comfortably in bed. Appears very somnolent and although was able to answer questions appropriately had a hard time maintaining concentration over the course of our clinical interaction. Denies any issues overnight. States he is tired. Denies any fever, chills, nausea, vomiting. Denies any neurological deficits or focal weaknesses. Review of Systems Constitutional: Reports: see HPI. Objective Last 24 Hrs of Vital Signs/I&O Vital Signs Date Time Temp Pulse Resp B/P B/P Pulse O2 O2 Flow FiO2 Mean Ox Delivery Rate 09/06 0805 74 140/66 09/06 0800 97 Room Air 09/06 0649 99.1 86 20 140/66 94 Room Air 09/06 0000 93 Room Air 09/05 2247 98.4 79 16 132/60 95 Room Air 09/05 1530 98.4 79 16 132/60 95 Room Air Intake & Output 09/06 1600 09/06 0800 09/06 0000 Intake Total 100 Output Total Balance 100 Intake, Oral 100 Patient 70.449 kg Weight Physical Exam General Appearance: Alert, Oriented X3, Cooperative HEENT: Mucous Membr. moist/pink Cardiovascular: Normal S1, Normal S2, Irregular Rate and rhythm Lungs: Clear to Auscultation Abdomen: Normal Bowel Sounds, Soft, No Tenderness Neurological: Cranial Nerves 3-12 NL, Right UE/LE: 4/5. Left UE/LE: 1/5, Left Arm in Bandage. Extremities: No Edema Current Medications: Current Medications Sig/Jose Angel Start time Last Medication Dose Route Stop Time Status Admin Allopurinol 100 MG DAILY 09/04 1336 AC 09/06 PO 0805 Artificial Tears 2 GTT 4 TIMES/DAY 09/04 1400 AC 09/06 OPH 0805 Aspirin 81 MG DAILY 09/05 1000 AC 09/06 PO 0805 Atorvastatin Calcium 80 MG 1700 09/05 1700 AC 09/05 PO 1739 Diltiazem HCl 90 MG Q6 09/04 2359 AC 09/06 PO 0633 Insulin Aspart 0 TIDAC 09/04 1700 AC SC Magnesium Oxide 200 MG DAILY 09/04 1335 AC 09/06 PO 0806 Mirtazapine 7.5 MG AT BEDTIME 09/04 2200 AC 09/05 PO 2320 Patient Medication 1 ED ONE ONE 04/09 1500 [facility] ED 09/05 1501 Senna/Docusate Sodium 2 TAB DAILY 09/05 1000 AC 09/06 PO 0805 Tamsulosin HCl 0.4 MG DAILY 09/04 1334 AC 09/06 PO 0805 Trazodone HCl 37.5 MG AT BEDTIME 09/04 2200 AC 09/05 PO 2321 Last 24 Hrs of Lab/Carl Results Last 24 Hrs of Labs/Mics: Laboratory Tests 09/06/17 0620: Anion Gap 11, Estimated GFR > 60, BUN/Creatinine Ratio 32.9 H, Triglycerides 71 , Cholesterol 162, LDL Cholesterol, Calc 95, HDL Cholesterol 53, Cholesterol/HDL Ratio 3 Assessment/Plan Assessment: Patient is 87 year old male with PMH of HTN, HLD, CVA, DM, a fib on eliquis who was brought in from [facility] with the chief complain of fall. 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 Patient does not remember his fall from the morning. He was discovered by the [facility] house staff on the floor and it is unknown if he had any loss of consciousness. After confirmation of the head MRI that the patient has developed a new acute infarct on the right. Acute right Basal Ganglia CVA. History of atrial fibrillation on Eliquis. History of diabetes. History of multiple falls & generalized deconditioning. Assessment and plan: Continue the patient on telemetry. -Continue aspirin. -Continue statin. -Addition of HBa1c and Lipid Panel -Will also continue to hold his eliquis, medication needs to be held for 2 days. He last took this medication on 09/04/2017. Thoracocentesis scheduled for 2017. -Spoke to Neuology regaring resuming anticoagulation, recommendation is at least one week after acute event. They will however come and see the patient. -Will continue all home meds including; diltiazem, allopurinol, escitalopram, mirtazipine, tamsulosin, trazodone. -Hold Remeron, owing to increased somenolence -will start low dose SS and order figer sticks. -Continue q 4 neuro checks. -Physical therapy -Consistent carbohydrate 2 to mechanical soft and nectar. -DVT ppx alps for now -Patient is full code Problem List: 1. Arm weakness 2. Hypertension 3. Syncope 4. Stroke Pain Ratin Pain Location: NO pain Pain Goal: Remain pain free Pain Plan: Tylenol PRN Tomorrow's Labs & Rationales: No Labs needed, may draw with thoracocentesis. 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 Had MBS study. Has residual deficit and now aviva lift. Vitals stable. Diet recs as per Speech/swallow. Assessment 1. Multiple falls 2. History of CVA with new acute infarct 3. Right-sided effusion- etiology could include CHF, hemothorax, malignancy etc. 4. History of A. fib currently on eliquis 5. Generalsoed physical deconditioing. Plan Held eliquis in anticipation of right thoracentesis, Neurology consulted and recommend MRI brain which is suggestive of acute infarct. f/u neurology to restart anticaogualtion. Cardiology recs for anticoagualtion of choice. Hbaic, lipid profile, stroke core measures. Continue other home medications, Lipitor Awaiting thoracocentesis by IR. Discussd with family who wants to pursue work up. Needs goals of care discussion.
--- NOTE | 2017-09-06 11:02 | PN- Cardiology ---
Subjective Subjective: The patient continues to have difficulty speaking and left-sided weakness. No chest pain. No palpitations. No shortness of breath Objective Vital Signs and I&Os Vital Signs Date Time Temp Pulse Resp B/P B/P Pulse O2 O2 Flow FiO2 Mean Ox Delivery Rate 09/06 0805 74 140/66 09/06 0800 97 Room Air 09/06 0649 99.1 86 20 140/66 94 Room Air 09/06 0000 93 Room Air 09/05 2247 98.4 79 16 132/60 95 Room Air 09/05 1530 98.4 79 16 132/60 95 Room Air 09/05 1223 66 116/70 Intake & Output 09/06 1600 09/06 0800 09/06 0000 09/05 1600 09/05 0800 09/05 0000 Intake Total 100 50 0 250 Output Total Balance 100 50 0 250 Intake, IV 20 Intake, Oral 100 30 0 250 Number 3 Bowel Movements Patient 155 lb 154 lb 154 lb Weight Weight Bed scale Measurement Method Physical Exam: Gen: The patient is in no acute distress HEENT: Normal nose, ears, and oropharynx. Pupils equal bilaterally. Conjunctiva normal. Neck: Supple with no JVD, no masses, and no thyromegaly Lungs: Clear to auscultation with normal respiratory effort Heart: Irregularly irregular, S1, S2, no murmurs. No peripheral edema, 2+ pulses in the lower extremities bilaterally Abdomen: Soft, nontender, no masses. No hepatomegaly. No splenomegaly Extremities: No clubbing or cyanosis. Left upper and lower externally weakness Skin: Normal skin turgor with no skin ulcers or lesions noted. Current Medications: Current Medications Sig/Jose Angel Start time Last Medication Dose Route Stop Time Status Admin Allopurinol 100 MG DAILY 09/04 1336 AC 09/06 PO 08 Artificial Tears 2 GTT 4 TIMES/DAY 09/04 1400 AC 09/06 OPH 0805 Aspirin 81 MG DAILY 09/05 1000 AC 09/06 PO 0805 Atorvastatin Calcium 80 MG 1700 09/05 1700 AC 09/05 PO 1739 Diltiazem HCl 90 MG Q6 09/04 2359 AC 09/06 PO 0633 Insulin Aspart 0 TIDAC 09/04 1700 AC SC Magnesium Oxide 200 MG DAILY 09/04 1335 AC 09/06 PO 0806 Mirtazapine 7.5 MG AT BEDTIME 09/04 2200 AC 09/05 PO 2320 Patient Medication 1 ED ONE ONE 09/05 1500 DC Teaching ED 09/05 1501 Senna/Docusate Sodium 2 TAB DAILY 09/05 1000 AC 09/06 PO 08 Tamsulosin HCl 0.4 MG DAILY 09/04 1334 AC 09/06 PO 08 Trazodone HCl 37.5 MG AT BEDTIME 09/04 2200 AC 09/05 PO 2321 Results Last 48 Hrs of Labs/Mics: Laboratory Tests 09/06/17 0620: Anion Gap 11, Estimated GFR > 60, BUN/Creatinine Ratio 32.9 H 09/05/17 0638: Anion Gap 12, Estimated GFR > 60, BUN/Creatinine Ratio 27.1 H, CBC w Diff NO MAN DIFF REQ, RBC 5.00, MCV 82.1, MCH 27.0, MCHC 32.8 L, RDW 17.0 H, MPV 9.5, Gran % 73.1, Lymphocytes % 14.3 L, Monocytes % 11.3 H, Eosinophils % 0.7, Basophils % 0.6, Absolute Granulocytes 5.5, Absolute Lymphocytes 1.1 L, Absolute Monocytes 0.9 H, Absolute Eosinophils 0.1, Absolute Basophils 0 09/04/17 1257: Triglycerides Cancelled, Cholesterol Cancelled, LDL Cholesterol, Calc Cancelled, HDL Cholesterol Cancelled, Cholesterol/HDL Ratio Cancelled Assessment/Plan Assessment/Plan Assessment: 1. Atrial fibrillation, apparently anticoagulated on Eliquis. Ventricular rate under control on oral diltiazem 2. Acute CVA Recommendations: * Echocardiogram * Carotid Dopplers * Continue aspirin and statin * Check with neurology regarding timing of restarting Eliquis after the acute CVA Continue telemetry? Yes
--- NOTE | 2017-09-06 12:09 | ULTRASOUND REPORT ---
EXAMINATION: US DUPLEX CAROTID AND VERTEBRAL CLINICAL INFORMATION: 87-year-old male with left hemiplegia. COMPARISON: None TECHNIQUE: Real-time ultrasound and Doppler techniques (integrating B-mode 2D vascular images, Doppler spectral analysis and color flow Doppler imaging) were utilized to interrogate the extracranial carotid and vertebral arteries bilaterally. The degree of stenosis determined by criteria similar to NASCET. FINDINGS: 1. On the right: Calcified plaque is present at the carotid bifurcation but velocity measurements are normal and do not suggest a stenosis of greater than 50% diameter reduction in the right ICA. The vertebral artery is patent demonstrating antegrade flow. The common carotid artery velocity is 84 cm/s. The internal carotid artery velocities are 56 cm/s systolic and 9 cm/s diastolic. The external carotid artery velocity is 116 cm/s. 2. On the left: Calcified plaque is present at the carotid bifurcation but velocity measurements are normal and do not suggest a stenosis of greater than 50% diameter reduction in the left ICA. The vertebral artery is patent demonstrating antegrade flow. The common carotid artery velocity is 127 cm/s. The internal carotid artery velocities are 108 cm/s systolic and 15 cm/s diastolic. The external carotid artery velocity is 96 cm/s. IMPRESSION: Plaque is present in the internal carotid arteries but velocity measurements are normal and there is no evidence to suggest a hemodynamically significant stenosis of greater than 50% diameter reduction.
[2017-09-06 14:00] VITALS: BP 128/60
--- NOTE | 2017-09-06 18:41 | PN- Neurology ---
Subjective Subjective: 87-year-old right-handed man with dementia and a right MCA territory ischemic stroke Objective Vital Signs and I&Os Vital Signs Date Time Temp Pulse Resp B/P B/P Pulse O2 O2 Flow FiO2 Mean Ox Delivery Rate 09/06 1400 97.6 100 20 128/60 94 Room Air 09/06 0805 74 140/66 09/06 0800 97 Room Air 09/06 0649 99.1 86 20 140/66 94 Room Air 09/06 0000 93 Room Air 09/05 2247 98.4 79 16 132/60 95 Room Air Intake & Output 09/06 1600 09/06 0800 09/06 0000 09/05 1600 09/05 0800 09/05 0000 Intake Total 520 100 50 0 250 Output Total Balance 520 100 50 0 250 Intake, IV 20 20 Intake, Oral 500 100 30 0 250 Number 3 Bowel Movements Patient 155 lb 154 lb 154 lb Weight Weight Bed scale Measurement Method Physical Exam: awake, alert sitting up in bed oriented to person only Thinks he is at [facility] he does not know the year month day or date speech fluent no dysarthria visual bai full to confrontation symmetric facial movements Dense left hemiplegia 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 Current Medications: Current Medications Sig/Jose Angel Start time Last Medication Dose Route Stop Time Status Admin Allopurinol 100 MG DAILY 09/04 1336 AC 09/06 PO 0805 Artificial Tears 2 GTT 4 TIMES/DAY 09/04 1400 AC 09/06 OPH 1725 Aspirin 81 MG DAILY 09/05 1000 AC 09/06 PO 0805 Atorvastatin Calcium 80 MG 1700 09/05 1700 AC 09/06 PO 1725 Diltiazem HCl 90 MG Q6 09/04 2359 AC 09/06 PO 1725 Insulin Aspart 0 TIDAC 09/04 1700 AC SC Magnesium Oxide 200 MG DAILY 09/04 1335 AC 09/06 PO 0806 Mirtazapine 7.5 MG AT BEDTIME 09/04 2200 DC 09/05 PO 2320 Senna/Docusate Sodium 2 TAB DAILY 09/05 1000 AC 09/06 PO 0805 Tamsulosin HCl 0.4 MG DAILY 09/04 1334 AC 09/06 PO 0805 Trazodone HCl 37.5 MG AT BEDTIME 09/04 2200 AC 09/05 PO 2321 Results Last 24 Hours of Lab Results: Laboratory Tests 09/06 0620 Chemistry Sodium (137 - 145 mmol/L) 141 Potassium (3.5 - 5.1 mmol/L) 4.0 Chloride (98 - 107 mmol/L) 104 Carbon Dioxide (22 - 30 mmol/L) 26 Anion Gap (5 - 16) 11 BUN (9 - 20 mg/dL) 23 H Creatinine (0.7 - 1.2 mg/dL) 0.7 Estimated GFR (>60 ml/min) > 60 BUN/Creatinine Ratio (7 - 25 %) 32.9 H Triglycerides (<150 mg/dL) 71 Cholesterol (< 200 MG/DL) 162 LDL Cholesterol, Calc (65 - 129 mg/dL) 95 HDL Cholesterol (40 - 60 mg/dL) 53 Cholesterol/HDL Ratio (0.00 - 4.88 %) 3 Recent Imaging Studies: CAROTID us IMPRESSION: Plaque is present in the internal carotid arteries but velocity measurements are normal and there is no evidence to suggest a hemodynamically significant stenosis of greater than 50% diameter reduction. DICTATED BY: Nelson Kiser DO DATE/TIME DICTATED:09/06/171202 BRAIN MRI 09-05-17: IMPRESSION: 1. There is an area of acute infarction in the right basal ganglia and right periventricular region. There is no evidence of hemorrhage. 2. The ventricles and sulci are commensurately prominent consistent with diffuse volume loss, and there are extensive chronic microvascular ischemic changes and lacunar infarcts as described above. Assessment/Plan Assessment: relatively small sized right MCA territory subcortical ischemic stroke but with dense left hemiplegia an 87-year-old man with diabetes mellitus hypertension hypercholesterolemia atrial fibrillation and dementia Plan: continue aspirin and statin 5 days post stroke ( September 09 ) check a follow-up head CT. 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
[2017-09-06 21:36] VITALS: BP 136/60
[2017-09-07 00:30] VITALS: BP 120/60
[2017-09-07 06:59] VITALS: BP 134/76
--- NOTE | 2017-09-07 07:14 | PN- Housestaff ---
AgustínsaminaBen farley 09/07/17 0714: Subjective Follow-up For: Right basal ganglia infarct Recurrent falls Left-sided large pleural effusion Low-grade temperature Complaints: left sided neck pain Tele-Events Since Last Visit: A. devorah, PVCs, heart rate 81-90 BPM. Subjective: This morning Mr. Cornejo complains of some left sided neck pain which has been going on for a few days. She denies any headache, chest pain, palpitations, shortness of breath, nausea, abdominal pain at this time. Patient does state he does have an appetite and would like to try something to eat at this time. Review of Systems Constitutional: Reports: see HPI. EENTM: Reports: no symptoms. Cardiovascular: Reports: no symptoms. Respiratory: Reports: no symptoms. Gastrointestinal: Reports: no symptoms. Genitourinary: Reports: no symptoms. Musculoskeletal: Reports: see HPI. Objective Last 24 Hrs of Vital Signs/I&O Vital Signs Date Time Temp Pulse Resp B/P B/P Pulse O2 O2 Flow FiO2 Mean Ox Delivery Rate 09/07 1448 88 120/70 09/07 1427 99.6 86 16 130/64 94 Room Air 09/07 1103 64 130/62 09/07 0659 98.5 83 12 134/76 95 Room Air 09/07 0030 82 120/60 09/06 2136 99.0 92 20 136/60 90 Room Air Intake & Output 09/07 1600 09/07 0800 09/07 0000 Intake Total 110 120 Output Total Balance 110 120 Intake, IV 10 Intake, Oral 100 120 Patient 154 lb Weight Physical Exam General Appearance: patient is laying in bed slumped towards the right side, easily arousable, AAO 3, no acute distress. Skin: proximal left upper extremity wrapped in a clean bandage at this time without any evidence of drainage HEENT: Mucous Membr. moist/pink Neck: tenderness reproduced with attempts to turn his head to the left Cardiovascular: Normal S1, Normal S2, irregularly irregular rhythm Lungs: Normal Air Movement, diminished breath sounds in the basal regions Abdomen: Normal Bowel Sounds, Soft, No Tenderness Neurological: diminished strength on the left upper and lower extremities. Strength 5/5 right upper extremity with slight intention tremor. Fluent speech, no dysarthria appreciated at this time. Left hemiplegia Extremities: Normal Pulses Vascular: Pulses Symmetrical Current Medications: Current Medications Sig/Jose Angel Start time Last Medication Dose Route Stop Time Status Admin Acetaminophen 325 MG Q6P PRN 09/07 1645 AC 09/07 PO 1808 Allopurinol 100 MG DAILY 09/04 1336 AC 09/07 PO 1105 Artificial Tears 2 GTT 4 TIMES/DAY 09/04 1400 AC 09/07 OPH 1756 Aspirin 81 MG DAILY 09/05 1000 AC 09/07 PO 1102 Atorvastatin Calcium 80 MG 1700 09/05 1700 AC 09/07 PO 1753 Dextrose/Sodium 1,000 ML Q13H 09/07 0600 DC 09/07 Chloride IV 0652 Diltiazem HCl 60 MG Q8 09/07 1400 AC 09/07 PO 1448 Diltiazem HCl 90 MG Q6 09/04 2359 DC 09/07 PO 0652 Insulin Aspart 0 TIDAC 09/07 1700 AC 09/07 SC 1812 Insulin Aspart 0 TIDAC 09/04 1700 DC SC Insulin Human Regular 1 UNITS .STK-MED ONE 09/07 0648 DC IV 09/07 0649 Insulin Human Regular 1 UNITS .STK-MED ONE 09/07 0024 DC IV 09/07 0025 Insulin Human Regular 0 Q6 09/06 2359 DC 09/07 SC 0652 Lidocaine 1 ML .STK-MED ONE 09/07 0917 DC ID 09/07 0918 Magnesium Oxide 200 MG DAILY 09/04 1335 AC 09/07 PO 1104 Senna/Docusate Sodium 2 TAB DAILY 09/05 1000 AC 09/07 PO 1104 Tamsulosin HCl 0.4 MG DAILY 09/04 1334 AC 09/07 PO 1103 Trazodone HCl 37.5 MG AT BEDTIME 09/04 2200 AC 09/06 PO 2115 Last 24 Hrs of Lab/Carl Results Last 24 Hrs of Labs/Mics: Laboratory Tests 09/07/17 0850: Pleural pH 7.48 09/07/17 0850: Fluid WBC 75 H, Fld Total RBCs Counted 3 H 09/07/17 0850: Lymphocytes 44, % Normal PMNs 3, Misc Hematology Test , Phlebotomy Draw Site RT THORACENTESIS, Fluid Glucose 110, Fluid Total Protein 3.6, Fluid Albumin 2.0, Fluid LDH 148, Fluid Lipase 29, Fluid Cholesterol < 50, Fluid Triglycerides 17 Microbiology 09/07 0850 BODY FLUID: Body Fluid Culture - RECD 09/07 0850 BODY FLUID: Gram Stain - RECD Assessment/Plan Assessment: Mr. Cornejo is an 87-year-old gentleman with a PMH of A. fib on eliquis, previous, HTN, HLD who resides at [facility] and was brought in due to recurrent falls. VS on admission: BP 182/96, HR 100, RR 18, SPO2 95% on RA, T 97.9 Pertinent labs on admission: WBC 8.7, H&H 14.3/44.7, platelets 256, sodium 142, potassium 4.2, BUN/CR 20/0.7 CT head: No acute intracranial normality. Chronic left putaminal infarct and background changes of moderate small vessel ischemia. Carotid ultrasound: Plaque present in internal carotid arteries, velocity measurements are normal no evidence to suggest hemodynamically significant stenosis greater than 50% diameter reduction. MRI brain on 09/05/2017: Area of acute infarction in the right basal ganglia and right periventricular region. No evidence of hemorrhage. Ventricles and sulci are commensurately prominent consistent with diffuse volume loss, and there are extensive chronic microvascular ischemic changes Patient was admitted to telemetry for management of the following problems 1. Right MCA territory subcortical ischemic stroke 2. Left sided pleural effusion Plan: * Overall no clinical improvement over the past 24 hours. We will continue with aspiration precautions with head of elevation above 30%, neuro checks. Swallow evaluation with silent aspiration. Continue him on mechanical soft and nectar thick. * Noticeable low-grade temperature 100.7 later in the day. Differential diagnosis includes fevers secondary to stroke/reactions status post thoracentesis/aspiration pneumonia. We'll continue to hold off antibiotics at this time but if recurrent fevers, obtain blood cultures and start patient on Unasyn for presumptive diagnosis of aspiration pneumonia and consider repeat CXR in the morning * Patient received left-sided thoracentesis on 09/07/2017 with total of 1160 mL. Cytology shows WBC of 75, 3 RBCs, LDH 148, cholesterol <50, pleural pH of 7.48. Will follow-up serum LDH to assess exudate versus transudate * Per neurology recommendations, repeat head CT on 09/09/2017 to assess for hemorrhagic conversion prior to restarting eliquis * Patient home dose of Cardizem ER 180 mg was held and he has been on Cardizem 90 mg Q6. Heart rate has been well controlled with systolic blood pressures ranging between 120 and 130. Will decrease the Cardizem dose to 60 mg Q8 and monitor for 24 hours * Consistent carbohydrate to diet. If patient has poor oral intake, would restart him back on gentle hydration with D5NS @ 50/hr * Mechanical DVT prophylaxis. Absolute contraindication at this time for pharmacological anticoagulation and to repeat CT rules out hemorrhagic conversion * FC Problem List: 1. Stroke 2. Pleural effusion Pain Ratin Pain Location: Left neck Pain Goal: Pain 4 or less Pain Plan: Warm compresses, head reposition Tomorrow's Labs & Rationales: CBC - assessing for leukocytosis for probable aspiration PNA DVT/Prophylaxis: mechanical AngelesSilverio 09/07/17 1105: Attending MD Review Statement Attending Statement Attending MD Statement: examined this patient, discuss w/resident/PA/NON CLINICAL ADVISOR, agreed w/resident/PA/NON CLINICAL ADVISOR, discussed with family, reviewed EMR data (avail), discussed with nursing, discussed with case mgmt, reviewed images, amended to note Attending Assessment/Plan: Patient seen/examined bedside. Underwent thoracentesis today. Had MBS study. Has residual deficit and now vaiva lift. Vitals stable. Diet recs as per Speech/ swallow. Assessment 1. Multiple falls 2. History of CVA with new acute infarct 3. Right-sided effusion- etiology could include CHF, hemothorax, malignancy etc. 4. History of A. fib currently on eliquis 5. Generalised physical deconditioing. Plan Held eliquis in anticipation of right thoracentesis, Neurology consulted and recommend MRI brain which is suggestive of acute infarct. f/u neurology to restart anticaogualtion (5 days and repeat head CT). Cardiology recs for anticoagualtion of choice. Hbaic, lipid profile, stroke core measures. Continue other home medications, Lipitor S/P thoracocentesis by IR. Follow results today. Discussd with family who wants to pursue work up. PT evaluation for disposition.
--- NOTE | 2017-09-07 08:10 | Patient Discharge Instructions ---
Discharge Instructions General Discharge Information You were seen/treated for: Stroke Special Instructions: -Please follow up with your PCP in 3- 5 days. -Please follow up with the wildlife control operator within 7 days. We have provided you with a referral. -Please follow up with Neurologist, Dr. Duff, within a week of discharge. Diet Additional DIET Information: Diabetic diet, Mechanical soft, [place] liquids. Activity Additional ACTIVITY Info: As tolerated To work with PT/OT. Acute Coronary Syndrome Inclusion Criteria At DC or during hospital stay patient has or had the following: ACS DIAGNOSIS No Discharge Core Measures Meds if any: Prescribed or Continued at Discharge Meds if any: NOT Prescribed or Continued at Discharge Congestive Heart Failure Inclusion Criteria At DC or during hospital stay patient has or had the following: CHF DIAGNOSIS No Discharge Core Measures Meds if any: Prescribed or Continued at Discharge Meds if any: NOT Prescribed or Continued at Discharge Cerebrovascular accident Inclusion Criteria At DC or during hospital stay patient has or had the following: CVA/TIA Diagnosis Yes Discharge Core Measures Meds if any: Prescribed or Continued at Discharge Meds if any: NOT Prescribed or Continued at Discharge Venous thromboembolism Inclusion Criteria VTE Diagnosis No VTE Type NONE VTE Confirmed by (Test) NONE Discharge Core Measures - Per Current guidelines, there needs to be overlap - treatment for the first 5 days of Warfarin therapy. - If discharged on Warfarin prior to 5 days of - overlap therapy, the patient will need to be - assessed for post discharge needs including - *Post discharge parental anticoagulation - *Warfarin and/or parental anticoagulation education - *Follow up date to check INR post discharge At least 5 days overlap therapy as Inpatient No Meds if any: Prescribed or Continued at Discharge Note: Overlap Therapy is Warfarin and Anticoagulant Meds if any: NOT Prescribed or Continued at Discharge
--- NOTE | 2017-09-07 08:13 | Discharge Summary ---
Visit Information Visit Dates Admission Date: 09/04/17 Discharge Date: 09/10/2017 Hospital Course Course Attending Physician: Silverio Reynoso MD Primary Care Physician: George Contreras MD Hospital Course: Mr Cornejo is an 87 year old male with PMH of HTN, HLD, CVA, DM, A fib on eliquis who was brought in from [facility] due to recurrent falls. It was unknown whether the patient had a loss of consciousness associated with these falls. It was reported that the patient had 2 falls in the 36 hours prior to admission. Patient was wheelchair-bound. VS on admission: BP 182/96, HR 100, RR 18, SPO2 95% on RA, T 97.9 Pertinent labs on admission: WBC 8.7, H&H 14.3/44.7, platelets 256, sodium 142, potassium 4.2, BUN/CR 20/0.7 The patient was admitted on the telemetry floor and was managed for the following problems: #Acute CVA. #Multiple falls & generalized deconditioning. #History of atrial fibrillation on Eliquis. #History of diabetes. #Ventricular rate under control with oral diltiazem. On 09/04/2017 we obtain a neurology consultation who recommended that patient should have an MRI to assess old vs new stroke. There was also some suggestion of associated dementia. Likely chronic. On 09/05/2017 MRI did suggest an area of acute infarction in the right basal ganglia. Results of this MRI has been attached. Patient was maintained on aspirin and statin. A lipid panel, HBA1C was also checked. At the time of admission the patient's Eliquis was held owing to incidental findings of a pleural effusion which required a thoracocentesis. On 09/07/2017 patient underwent a right sided thoracentesis total of 1160 mL was drained. The fluid appeared to be transudative. Cytology pending. On 09/07/2017 the patient did also have a low-grade temperature 100.7. This was attributed to post thoracocentesis. He was watched off antibiotics and did not have any recurrent fevers. It was recommended that the patient would need to have a repeat head CT on 09/09/2017 to assess for hemorrhagic conversion prior to restarting Eliquis. His head CT was negative for any negative for hemorrhagic conversion. Eliquis was restarted. The patient was evaluated by cardiology and neurology during his hospital stay. An echocardiogram and carotid Doppler studies were ordered. Doppler carotid results attached. Echocardiogram pending. Patient was taking Cardizem extended release 180 mg. During this admission this was changed to 60 mg every 8 and heart rate monitored. A Swallow evaluation was also obtained and recommendations implemented once a MBS was done. He also received treatment for conjunctivitis in left eye. On 09/09/17, the patient developed Right knee pain and swelling, X-ray revealed advanced osteoarthritis with small effusion without fracture. Diet: Consistent carbohydrate 2, mechanical soft and nectar. He was gently hydrated with D5 normal saline when PO intake decreased. He was initially maintained on ALPS FOR DVT prophylaxis later on was started on Eliquis. Patient was a full code Allergies: Coded Allergies: enalapril (UNKNOWN 09/01/15) Pertinent Lab Results: SERVICE DATE: 09/04/17 EXAM TYPE: CAT - CT CERV SPINE WO IV CONTRAST; CT HEAD WO IV CONTRAST IMPRESSION: CT head: No acute intracranial abnormality. Chronic left putamen lacunar infarct and background changes of moderate small vessel ischemia. CT cervical spine: No cervical spine fracture or traumatic malalignment. Advanced multilevel degenerative changes as above. Partially imaged large right pleural effusion. DICTATED BY: Gerri Wood MD SERVICE DATE: 09/04/171020 DICTATED BY: Gerri Wood MD EXAM TYPE: CAT - CT CHEST WO IV CONTRAST IMPRESSION: - Large right pleural effusion with complete collapse of the right lower lobe. No evidence of endobronchial obstructing lesion. Trace left pleural effusion. - Aerated lungs are clear. - No mediastinal adenopathy. DICTATED BY: Gerri Wood MD SERVICE DATE: 09/04/171204 EXAM TYPE: RAD - XRY-ELBOW 3 OR MORE VIEWS, L; XRY-SHOULDER COMPLETE-LEFT IMPRESSION: 1. No acute osseous abnormalities of the left shoulder or left elbow. 2. Suspect a focus of subcutaneous gas along the posterior elbow. Please correlate for local laceration. 3. Decreased bone mineral density. If there is high clinical suspicion for fracture, consider further evaluation with MRI or CT scan to assess for radiographically occult osseous injury. DICTATED BY: Matteo Kelly MD SERVICE DATE: 09/05/17- EXAM TYPE: MRI - MRI-HEAD W/O CHUCHO IMPRESSION: 1. There is an area of acute infarction in the right basal ganglia and right periventricular region. There is no evidence of hemorrhage. 2. The ventricles and sulci are commensurately prominent consistent with diffuse volume loss, and there are extensive chronic microvascular ischemic changes and lacunar infarcts as described above. 3. This critical result was discussed with Espinozaanastacio Bradford by telephone on 09/05/2017 at 3:45 PM and it was ascertained that the content and urgency of the report was understood at the time of direct communication. DICTATED BY: Uriel Beckwith MD SERVICE DATE: 09/05/17- EXAM TYPE: RAD - XRY-MODIFIED BARIUM SWALLOW IMPRESSION: 1. Silent penetration of contrast noted with honey and thin consistencies. No mony aspiration seen. 2. Mildly disordered swallowing with other consistencies as discussed above. 3. Speech pathologist assessment issued separately. DICTATED BY: Kiesha Perry MD SERVICE DATE: 09/06/17- EXAM TYPE: US - GZ-ROISRHW-VEBARTSBO DOPPLER IMPRESSION: Plaque is present in the internal carotid arteries but velocity measurements are normal and there is no evidence to suggest a hemodynamically significant stenosis of greater than 50% diameter reduction. DICTATED BY: Nelson Kiser DO SERVICE DATE: 09/07/17- EXAM TYPE: RAD - XRY-CHEST XRAY, SINGLE VIEW IMPRESSION: Status post right thoracentesis with small residual pleural effusion. No demonstrable pneumothorax. DICTATED BY: Natalia Orozco MD SERVICE DATE: 09/07/17- EXAM TYPE: US - US-THORACENTESIS TECHNIQUE: Indirect ultrasound guided thoracentesis using a 5 [place] Yueh catheter. FINDINGS: Informed consent was obtained from the patient prior to the procedure. During this process, the procedure alternatives were explained, along with the intended outcome and benefits. The risks of the procedure, as well as the risk of not doing the procedure, was discussed. The patient was given the opportunity to ask questions regarding the procedure and appeared competent to make medical decisions. A signed consent form which documents this discussion was placed in the medical record. A timeout procedure was performed. Ultrasound evaluation of the chest for pleural fluid was performed. A large pleural effusion is noted on the right side. Using standard interventional and sterile techniques, lidocaine was used to anesthetize the region. A 5 [place] Yueh catheter was introduced into the right pleural fluid using standard safety needle technique. Approximately 1160 mL of light yellow fluid was removed into the Vacutainer bottles. The catheter was then removed. Good hemostasis was achieved. The patient tolerated the procedure well. A sterile dressing was placed. The patient was discharged from the department in stable condition. Patient scheduled for post procedure followup x-ray. COMPLICATIONS: None. IMPRESSION: Successful ultrasound-guided thoracentesis of 1160 mL of fluid. DICTATED BY: Amrit Carter MD EXAM TYPE: RAD - XRY-KNEE COMPLETE RIGHT SERVICE DATE: 09/09/17 FINDINGS: There is advanced tricompartmental osteoarthritis involving the right knee joint. [id number] appearance involves the medial compartment. Marginal spurs are present. There is a small suprapatellar joint effusion. Extensive arterial vascular calcifications are also seen about the knee and upper leg. Surgical clips in the medial proximal soft tissues of the right leg secondary to prior meniscus surgery. IMPRESSION: Advanced osteoarthritis with small effusion. No fracture. DICTATED BY: Jules Inman MD Disposition Summary Disposition Principal Diagnosis: Acute CVA. Additional Diagnosis: History of atrial fibrillation on Eliquis. History of diabetes. Ventricular rate under control with oral diltiazem. History of multiple falls & generalized deconditioning. Discharge Disposition: SNF Discharge Instructions General Discharge Information Code Status: Full Code Patient's Diet: Consistent Carbohydrate Diet Mechanical Soft and [place] Patient's Activity: As Tolerated Follow-Up Instructions/Appts: -Please follow up with your PCP in 3- 5 days. -Please follow up with the manager credit within 7 days. We have provided you with a referral. -Please follow up with Neurologist, Dr. Duff, within a week of discharge. Medications at Discharge Discharge Medications: Stop taking the following medications: Diltiazem HCl (Diltiazem 24HR ER) 180 MG CAP.ER.24H ORAL DAILY Continue taking these medications: Apixaban (Eliquis) 5 MG TABLET 1 Tablet ORAL TWICE DAILY Qty = 60 Allopurinol (Allopurinol) 100 MG TABLET 1 Tablet ORAL DAILY Tamsulosin HCl (Flomax) 0.4 MG CAP.ER.24H 1 Capsule ORAL DAILY Start taking the following new medications: Aspirin (Aspirin*) 81 MG TAB.CHEW 81 Milligram ORAL DAILY Qty = 30 No Refills Trazodone HCl (Trazodone HCl) 50 MG TABLET 37.5 Milligram ORAL AT BEDTIME Qty = 30 No Refills Atorvastatin Calcium (Atorvastatin Calcium) 80 MG TABLET 80 Milligram ORAL 5 PM Qty = 30 No Refills Sennosides/Docusate Sodium (Senna Plus Tablet) 8.6 MG-50 MG TABLET 2 Tablet ORAL DAILY as needed for Constipation Qty = 30 No Refills Diltiazem HCl (Cardizem) 60 MG TABLET 1 Tablet ORAL EVERY 8 HOURS Qty = 90 No Refills Ciprofloxacin (Ciloxan) 0.3 % DROPS 2 Drop In the eye Every 4 hours Qty = 5 No Refills Instructions: Left eye for 5 days starting 09/10/17. Dextran 70/Hypromellose (Artificials Tears Drops) 30 ML DROPS 1 Drop In the eye EVERY HOUR NEEDED as needed for Dry eye Qty = 1 No Refills Copies To: Diane CAMPBELL,George Russell; Miles CAMPBELL,Maddy Beal
--- NOTE | 2017-09-07 09:28 | RADIOLOGY REPORT ---
EXAMINATION:\H\ \N\XR CHEST CLINICAL INFORMATION: Status post right thoracentesis COMPARISON: Chest CT from 09/04/2017 TECHNIQUE: Frontal view of the chest was obtained. FINDINGS: Status post right thoracentesis. There is a small residual right pleural effusion. No demonstrable pneumothorax. The left lung is clear and well aerated. Cardiomediastinal silhouette is unchanged. Redemonstrated aortic atherosclerosis. There are bilateral acromioclavicular joint degenerative changes. IMPRESSION: Status post right thoracentesis with small residual pleural effusion. No demonstrable pneumothorax.
--- NOTE | 2017-09-07 12:41 | PN- Cardiology ---
Subjective Subjective: no significant clinical change. Cardiac status unchanged. Just returned from thoracentesis. Objective Vital Signs and I&Os Vital Signs Date Time Temp Pulse Resp B/P B/P Pulse O2 O2 Flow FiO2 Mean Ox Delivery Rate 09/07 1103 64 130/62 09/07 0659 98.5 83 12 134/76 95 Room Air 09/07 0030 82 120/60 09/06 2136 99.0 92 20 136/60 90 Room Air 09/06 1400 97.6 100 20 128/60 94 Room Air Intake & Output 09/07 1600 09/07 0800 09/07 0000 09/06 1600 09/06 0800 09/06 0000 Intake Total 110 120 520 100 Output Total Balance 110 120 520 100 Intake, IV 10 20 Intake, Oral 100 120 500 100 Patient 154 lb 155 lb Weight Physical Exam: General Appearance: Alert, Oriented X3, Cooperative HEENT: Mucous Membr. moist/pink Cardiovascular: Normal S1, Normal S2, Irregular Rate and rhythm Lungs: Clear to Auscultation and percussion bilaterally Abdomen: Normal Bowel Sounds, Soft, No Tenderness Neurological: Cranial Nerves 3-12 NL, Right UE/LE: 4/5. Left UE/LE: 1/5, Left Arm in Bandage. Extremities: No Edema Current Medications: Current Medications Sig/Jose Angel Start time Last Medication Dose Route Stop Time Status Admin Allopurinol 100 MG DAILY 09/04 1336 AC 09/07 PO 1105 Artificial Tears 2 GTT 4 TIMES/DAY 09/04 1400 AC 09/07 OPH 1128 Aspirin 81 MG DAILY 09/05 1000 AC 09/07 PO 1102 Atorvastatin Calcium 80 MG 1700 09/05 1700 AC 09/06 PO 1725 Dextrose/Sodium 1,000 ML Q13H 09/07 0600 AC 09/07 Chloride IV 0652 Diltiazem HCl 60 MG Q8 09/07 1400 AC PO Diltiazem HCl 90 MG Q6 09/04 2359 DC 09/07 PO 0652 Insulin Aspart 0 TIDAC 09/04 1700 DC SC Insulin Human Regular 1 UNITS .STK-MED ONE 09/07 0024 DC IV 09/07 0025 Insulin Human Regular 0 Q6 09/06 2359 AC 09/07 SC 0652 Lidocaine 1 ML .STK-MED ONE 09/07 0917 DC ID 09/07 0918 Magnesium Oxide 200 MG DAILY 09/04 1335 AC 09/07 PO 1104 Mirtazapine 7.5 MG AT BEDTIME 09/04 2200 DC 09/05 PO 2320 Senna/Docusate Sodium 2 TAB DAILY 09/05 1000 AC 09/07 PO 1104 Tamsulosin HCl 0.4 MG DAILY 09/04 1334 AC 09/07 PO 1103 Trazodone HCl 37.5 MG AT BEDTIME 09/04 2200 AC 09/06 PO 2115 Results Last 48 Hrs of Labs/Mics: Laboratory Tests 09/07/17 0850: Pleural pH 7.48 09/07/17 0850: Fluid WBC 75 H, Fld Total RBCs Counted 3 H 09/07/17 0850: Lymphocytes 44, % Normal PMNs 3, Misc Hematology Test , Phlebotomy Draw Site RT THORACENTESIS, Fluid Glucose 110, Fluid Total Protein 3.6, Fluid Albumin 2.0, Fluid LDH 148, Fluid Lipase 29, Fluid Cholesterol < 50, Fluid Triglycerides 17 09/06/17 1000: Fluid Albumin Cancelled 09/06/17 0620: Anion Gap 11, Estimated GFR > 60, BUN/Creatinine Ratio 32.9 H, Triglycerides 71 , Cholesterol 162, LDL Cholesterol, Calc 95, HDL Cholesterol 53, Cholesterol/HDL Ratio 3 Assessment/Plan Assessment/Plan Assessment: 1. Atrial fibrillation, apparently anticoagulated on Eliquis. Ventricular rate under control on oral diltiazem 2. Acute CVA 3. Bilateral carotid plaque 4. Elevated proBNP Recommendations: -Continue as per the medical team -Echocardiogram pending -Continue current medications -Final decision about restarting oral anticoagulation depending on further input from neurology. Continue telemetry? Yes
[2017-09-07 14:27] VITALS: BP 130/64
--- NOTE | 2017-09-07 15:12 | ULTRASOUND REPORT ---
PROCEDURE: Thoracentesis CLINICAL INFORMATION: Pleural Effusion COMPARISON: Chest CT 09/04/2017 TECHNIQUE: Indirect ultrasound guided thoracentesis using a 5 S[place] Yueh catheter. FINDINGS: Informed consent was obtained from the patient prior to the procedure. During this process, the procedure alternatives were explained, along with the intended outcome and benefits. The risks of the procedure, as well as the risk of not doing the procedure, was discussed. The patient was given the opportunity to ask questions regarding the procedure and appeared competent to make medical decisions. A signed consent form which documents this discussion was placed in the medical record. A timeout procedure was performed. Ultrasound evaluation of the chest for pleural fluid was performed. A large pleural effusion is noted on the right side. Using standard interventional and sterile techniques, lidocaine was used to anesthetize the region. A 5 [place] Yueh catheter was introduced into the right pleural fluid using standard safety needle technique. Approximately 1160 mL of light yellow fluid was removed into the Vacutainer bottles. The catheter was then removed. Good hemostasis was achieved. The patient tolerated the procedure well. A sterile dressing was placed. The patient was discharged from the department in stable condition. Patient scheduled for post procedure followup x-ray. COMPLICATIONS: None. IMPRESSION: Successful ultrasound-guided thoracentesis of 1160 mL of fluid.
[2017-09-07 23:20] VITALS: BP 122/64
[2017-09-08 06:38] VITALS: BP 154/72
[2017-09-08 07:52] LABS: ABSOLUTE BASOPHIL COUNT 0 /CUMM (0.0-0.2); ABSOLUTE EOSINOPHIL COUNT 0 /CUMM (0.0-0.7); ABSOLUTE GRANULOCYTE CT 7.5 /CUMM (1.4-6.5); ABSOLUTE LYMPH COUNT 0.7 /CUMM (1.2-3.4); ABSOLUTE MONOCYTE COUNT 1.2 /CUMM (0.10-0.60); BASOPHIL % 0.2 % (0.0-2.0); EOSINOPHIL % 0.2 % (0-5); GRANULOCYTE % 79.1 % (42.2-75.2); HEMATOCRIT 43.1 % (42-52); MEAN CORPUSCULAR HGB 27.1 PG (27.0-31.0); MEAN CORPUSCULAR HGB CONC 32.7 G/DL (33.0-37.0); MEAN CORPUSCULAR VOLUME 83.1 FL (80.0-94.0); MEAN PLATELET VOLUME 9.6 FL (7.4-10.4); PLATELET COUNT 235 /CUMM (130-400); RBC DISTRIBUTION WIDTH 16.3 % (11.5-14.5); RED BLOOD CELL CT 5.18 /CUMM (4.70-6.10); WHITE BLOOD CELL COUNT 9.5 /CUMM (4.8-10.8)
--- NOTE | 2017-09-08 09:09 | PN- Housestaff ---
Nadeen Joseph 09/08/17 0909: Subjective Follow-up For: Right basal ganglia infarct Recurrent falls Left-sided large pleural effusion Low-grade temperature Subjective: The patient was seen and examined. He offers no complaints. Denies any dizziness, lightheadedness, nausea, vomiting, chest pain, shortness of breath. Vital signs remained stable. Status post paracentesis yesterday. Review of Systems Constitutional: Reports: no symptoms. Objective Last 24 Hrs of Vital Signs/I&O Vital Signs Date Time Temp Pulse Resp B/P B/P Pulse O2 O2 Flow FiO2 Mean Ox Delivery Rate 09/08 1656 102 150/80 09/08 1541 97.8 95 18 152/72 95 09/08 0855 80 20 130/64 09/08 0800 98 Room Air 09/08 0638 97.5 85 18 154/72 95 Room Air 09/08 0636 93 154/72 09/08 0000 Room Air 09/07 2320 98.1 81 16 122/64 96 Room Air 09/07 2157 82 140/76 Intake & Output 09/08 1600 09/08 0800 09/08 0000 Intake Total 410 Output Total Balance 410 Intake, IV 10 Intake, Oral 400 Number 1 Bowel Movements Patient 151 lb Weight Physical Exam General Appearance: Cooperative, No Acute Distress Other Physical Findings: Skin: proximal left upper extremity wrapped in a clean bandage without any evidence of drainage HEENT: Mucous Membr. moist/pink, crust noted on left lower eye lid, erythematous ; nursing staff reports that this has been present for the past few days Neck: Supple Cardiovascular: Normal S1, Normal S2, irregularly irregular rhythm Lungs: Normal Air Movement, diminished breath sounds in the basal regions Abdomen: Normal Bowel Sounds, Soft, No Tenderness Neurological: diminished strength on the left upper and lower extremities. Strength 5/5 right upper extremity with slight intention tremor. Fluent speech, no dysarthria appreciated at this time. Left hemiplegia Extremities: Normal Pulses Vascular: Pulses Symmetrica Current Medications: Current Medications Sig/Jose Angel Start time Last Medication Dose Route Stop Time Status Admin Acetaminophen 325 MG Q6P PRN 09/07 1645 AC 09/07 PO 1808 Allopurinol 100 MG DAILY 09/04 1336 AC 09/08 PO 0844 Artificial Tears 2 GTT 4 TIMES/DAY 09/04 1400 AC 09/08 OPH 1643 Aspirin 81 MG DAILY 09/05 1000 AC 09/08 PO 0841 Atorvastatin Calcium 80 MG 1700 09/05 1700 AC 09/08 PO 1652 Ciprofloxacin 2 GTT Q2 09/08 1600 AC 09/08 OPH 09/11 1999 165 Diltiazem HCl 60 MG Q8 09/07 1400 AC 09/08 PO 1656 Insulin Aspart 0 TIDAC 09/07 1700 AC 09/07 SC 1812 Magnesium Oxide 200 MG DAILY 09/04 1335 AC 09/08 PO 0848 Patient Medication 1 ED ONE ONE 09/08 1000 SD Teaching ED 09/08 1001 Senna/Docusate Sodium 2 TAB DAILY 09/05 1000 AC 09/08 PO 0843 Tamsulosin HCl 0.4 MG DAILY 09/04 1334 AC 09/08 PO 0855 Trazodone HCl 37.5 MG AT BEDTIME 09/04 2200 AC 09/07 PO 2153 Last 24 Hrs of Lab/Carl Results Last 24 Hrs of Labs/Mics: Laboratory Tests 09/08/17 0618: Anion Gap 12, Estimated GFR > 60, BUN/Creatinine Ratio 51.4 H, CBC w Diff NO MAN DIFF REQ, RBC 5.18, MCV 83.1, MCH 27.1, MCHC 32.7 L, RDW 16.3 H, MPV 9.6, Gran % 79.1 H, Lymphocytes % 7.6 L, Monocytes % 12.9 H, Eosinophils % 0.2, Basophils % 0.2, Absolute Granulocytes 7.5 H, Absolute Lymphocytes 0.7 L, Absolute Monocytes 1.2 H, Absolute Eosinophils 0, Absolute Basophils 0 Assessment/Plan Assessment: This is an 87-year-old gentleman with a PMH of A. fib on eliquis, previous, HTN, HLD who resides at [facility] and was brought in due to recurrent falls. CT head: No acute intracranial normality. Chronic left putaminal infarct and background changes of moderate small vessel ischemia. Carotid ultrasound: Plaque present in internal carotid arteries, velocity measurements are normal no evidence to suggest hemodynamically significant stenosis greater than 50% diameter reduction. MRI brain on 09/05/2017: Area of acute infarction in the right basal ganglia and right periventricular region. No evidence of hemorrhage. Ventricles and sulci are commensurately prominent consistent with diffuse volume loss, and there are extensive chronic microvascular ischemic changes Problem list: #Right MCA territory subcortical ischemic stroke #Left sided pleural effusion Plan: * Continue with aspiration precautions with head of elevation above 30%, neuro checks. Swallow evaluation with silent aspiration. Continue him on mechanical soft and nectar thick. * Remained afebrile overnight * Patient received left-sided thoracentesis on 09/07/2017 with total of 1160 mL. Cytology shows WBC of 75, 3 RBCs, LDH 148, cholesterol <50, pleural pH of 7.48. Serum LDH 353 suggestive of transudate * Per neurology recommendations, repeat head CT on 09/09/2017 to assess for hemorrhagic conversion prior to restarting eliquis * C/WCardizem 60 mg Q8 and monitor for 24 hours * Cipro eye drops to left eye * Consistent carbohydrate to diet. If patient has poor oral intake, would restart him back on gentle hydration with D5NS @ 50/hr * Mechanical DVT prophylaxis. Absolute contraindication at this time for pharmacological anticoagulation and to repeat CT rules out hemorrhagic conversion * FC Problem List: 1. Stroke 2. Fall Pain Ratin Pain Location: NA Pain Goal: Remain pain free Pain Plan: NA Tomorrow's Labs & Rationales: CBC to monitor H&H BEP to monitor electrolytes Silverio Reynoso 09/08/17 1138: Attending MD Review Statement Attending Statement Attending MD Statement: examined this patient, discuss w/resident/PA/ADULT SPECIALIST, agreed w/resident/PA/ADULT SPECIALIST, discussed with family, reviewed EMR data (avail), discussed with nursing, discussed with case mgmt, reviewed images, amended to note Attending Assessment/Plan: Patient seen/examined bedside. No new complaints. Repeat chest xray with no pneumothorax. S/P thoracentesis with transudate. Had MBS study. Has residual deficit and now likely needing aviva lift. Vitals stable on room air. Diet recs as per Speech/swallow. Assessment 1. Multiple falls 2. History of CVA with new acute infarct 3. Right-sided effusion transudative- etiology could include CHF, malignancy etc. 4. History of A. fib currently on eliquis 5. Generalised physical deconditioing. Plan Held eliquis for acute stroke, Neurology consulted and recommend MRI brain which is suggestive of acute infarct. f/u neurology to restart anticaogualtion. Cardiology recs for anticoagualtion of choice. CT head tomorrow and if negative for bleed restart a/c. Hbaic, lipid profile, stroke core measures. Continue other home medications, Lipitor S/P thoracocentesis by IR. Await cytology. Needs to follow up with PCP and cardiology outpatient in 2-3 weeks of discahrge
[2017-09-08] MEDS ORDERED: FLOMAX0.4 M1 PO (10:46)
[2017-09-08] MEDS ORDERED: ALLOPURINOL100 M1 PO (10:46)
[2017-09-08] MEDS ORDERED: ELIQUIS5 M1 PO (10:46)
[2017-09-08] MEDS ORDERED: DILTIAZEM 24HR180 MG PO (10:47)
[2017-09-08 15:41] VITALS: BP 152/72
--- NOTE | 2017-09-08 16:51 | PN- Cardiology ---
Subjective Subjective: No significant clinical change. No new obvious cardiac issues. Objective Vital Signs and I&Os Vital Signs Date Time Temp Pulse Resp B/P B/P Pulse O2 O2 Flow FiO2 Mean Ox Delivery Rate 09/08 1541 97.8 95 18 152/72 95 / 0855 80 20 130/64 09/08 0800 98 Room Air 09/08 0638 97.5 85 18 154/72 95 Room Air 09/08 0636 93 154/72 09/08 0000 Room Air 09/07 2320 98.1 81 16 122/64 96 Room Air 09/07 2157 82 140/76 Intake & Output 09/08 1600 09/08 0800 04/ 0000 09/07 1600 09/07 0800 09/07 0000 Intake Total 410 110 120 Output Total Balance 410 110 120 Intake, IV 10 10 Intake, Oral 400 100 120 Number 1 Bowel Movements Patient 151 lb 154 lb Weight Physical Exam: General Appearance: Alert, Oriented X3, Cooperative HEENT: Mucous Membr. moist/pink Cardiovascular: Normal S1, Normal S2, Irregular Rate and rhythm Lungs: Clear to Auscultation and percussion bilaterally Abdomen: Normal Bowel Sounds, Soft, No Tenderness Neurological: Cranial Nerves 3-12 NL, Right UE/LE: 4/5. Left UE/LE: 1/5, Left Arm in Bandage. Extremities: No Edema Current Medications: Current Medications Sig/Jose Angel Start time Last Medication Dose Route Stop Time Status Admin Acetaminophen 325 MG Q6P PRN 09/07 1645 AC 09/07 PO 1808 Allopurinol 100 MG DAILY 09/04 1336 AC 09/08 PO 0844 Artificial Tears 2 GTT 4 TIMES/DAY 09/04 1400 AC 09/08 OPH 0845 Aspirin 81 MG DAILY 09/05 1000 AC 09/08 PO 0841 Atorvastatin Calcium 80 MG 1700 09/05 1700 AC 09/07 PO 1753 Ciprofloxacin 2 GTT Q2 09/08 1600 AC OPH 09/10 2000 Diltiazem HCl 60 MG Q8 09/07 1400 AC 09/08 PO 0636 Insulin Aspart 0 TIDAC 09/07 1700 AC 09/07 SC 1812 Magnesium Oxide 200 MG DAILY 09/04 1335 AC 09/08 PO 0848 Patient Medication 1 ED ONE ONE 09/08 1000 DC Teaching ED 09/08 1001 Senna/Docusate Sodium 2 TAB DAILY 09/05 1000 AC 09/08 PO 0843 Tamsulosin HCl 0.4 MG DAILY 09/04 1334 AC 09/08 PO 0855 Trazodone HCl 37.5 MG AT BEDTIME 09/04 2200 AC 09/07 PO 2153 Results Last 48 Hrs of Labs/Mics: Laboratory Tests 09/08/17 0618: Anion Gap 12, Estimated GFR > 60, BUN/Creatinine Ratio 51.4 H, CBC w Diff NO MAN DIFF REQ, RBC 5.18, MCV 83.1, MCH 27.1, MCHC 32.7 L, RDW 16.3 H, MPV 9.6, Gran % 79.1 H, Lymphocytes % 7.6 L, Monocytes % 12.9 H, Eosinophils % 0.2, Basophils % 0.2, Absolute Granulocytes 7.5 H, Absolute Lymphocytes 0.7 L, Absolute Monocytes 1.2 H, Absolute Eosinophils 0, Absolute Basophils 0 09/07/17 0850: Pleural pH 7.48 09/07/17 0850: Fluid WBC 75 H, Fld Total RBCs Counted 3 H 09/07/17 0850: Lymphocytes 44, % Normal PMNs 3, Misc Hematology Test , Phlebotomy Draw Site RT THORACENTESIS, Fluid Glucose 110, Fluid Total Protein 3.6, Fluid Albumin 2.0, Fluid LDH 148, Fluid Lipase 29, Fluid Cholesterol < 50, Fluid Triglycerides 17 Assessment/Plan Assessment/Plan Assessment: 1. Atrial fibrillation, apparently anticoagulated on Eliquis. Ventricular rate under control on oral diltiazem 2. Acute CVA 3. Bilateral carotid plaque 4. Elevated proBNP 5. Multiple falls 6. Right sided transudative pleural effusion Recommendations: -Continue as per the medical and Neurology teams. -Aspiration precautions. -Eliquis on hold pending results of followup scans on 09/09 as per Neurology -Continue other medication for now. -Continue telemetry. Continue telemetry? Yes
[2017-09-08] MEDS ORDERED: ASPIRIN81 M4 PO (19:38)
[2017-09-08] MEDS ORDERED: TRAZODONE HCL50 M1 PO (19:38)
[2017-09-08] MEDS ORDERED: ATORVASTATIN CA80 M1 PO (19:41)
[2017-09-08 23:22] VITALS: BP 150/66
[2017-09-09 06:02] VITALS: BP 140/56
--- NOTE | 2017-09-09 07:55 | PN- Housestaff ---
Nadeen Joseph 09/09/17 0755: Subjective Follow-up For: Right basal ganglia infarct Recurrent falls Left-sided large pleural effusion Low-grade temperature Tele-Events Since Last Visit: Atrial fibrillation, PVCs, rate 78-95 Subjective: The patient was seen and examined today. He denies any chest pain, shortness of breath, dizziness, lightheadedness, nausea, vomiting, abdominal pain, urinary symptoms. His head CT was negative for any acute hemorrhage. Developed right knee swelling with severe pain later during the day. Review of Systems Constitutional: Reports: no symptoms. Objective Last 24 Hrs of Vital Signs/I&O Vital Signs Date Time Temp Pulse Resp B/P B/P Pulse O2 O2 Flow FiO2 Mean Ox Delivery Rate 09/09 1456 98.0 103 20 120/62 95 Room Air 09/09 0939 82 140/66 09/09 0602 97.9 88 20 140/56 94 Room Air 09/09 0536 94 140/86 09/09 0000 Room Air 09/08 2322 97.5 98 18 150/66 94 Room Air Intake & Output 09/09 1600 09/09 0800 09/09 0000 Intake Total 110 120 Output Total Balance 110 120 Intake, IV 10 Intake, Oral 100 120 Patient 152 lb Weight Weight Bed scale Measurement Method Physical Exam General Appearance: Alert, Cooperative, No Acute Distress Other Physical Findings: Skin: proximal left upper extremity wrapped in a clean bandage without any evidence of drainage HEENT: Mucous Membr. moist/pink, crust noted on left lower eye lid, erythematous ; nursing staff reports that this has been present for the past few days Neck: Supple Cardiovascular: Normal S1, Normal S2, irregularly irregular rhythm Lungs: Normal Air Movement, diminished breath sounds in the basal regions Abdomen: Normal Bowel Sounds, Soft, No Tenderness Neurological: diminished strength on the left upper and lower extremities. Strength 5/5 right upper extremity with slight intention tremor. Fluent speech, no dysarthria appreciated at this time. Left hemiplegia Extremities: Swelling noted over the right knee without any sign of ecchymosis. Possible fluid collection noted on palpation over knee joint. Tenderness to palpation without any warmth or erythema. Normal Pulses Vascular: Pulses Symmetrica Current Medications: Current Medications Sig/Jose Angel Start time Last Medication Dose Route Stop Time Status Admin Acetaminophen 325 MG Q6P PRN 09/07 1645 AC 09/07 PO 1808 Allopurinol 100 MG DAILY 09/04 1336 AC 09/09 PO 0942 Apixaban 5 MG BID 09/09 1114 AC 09/09 PO 1244 Artificial Tears 2 GTT 4 TIMES/DAY 09/04 1400 AC 09/09 OPH 1245 Aspirin 81 MG DAILY 09/05 1000 AC 09/09 PO 0941 Atorvastatin Calcium 80 MG 1700 09/05 1700 AC 09/08 PO 1652 Ciprofloxacin 2 GTT Q2 09/08 1600 AC 09/09 OPH 09/10 2000 1246 Diltiazem HCl 60 MG Q8 09/07 1400 AC 09/09 PO 0536 Insulin Aspart 0 TIDAC 09/07 1700 AC 09/09 SC 1242 Magnesium Oxide 200 MG DAILY 09/04 1335 AC 09/09 PO 0941 Senna/Docusate Sodium 2 TAB DAILY 09/05 1000 AC 09/09 PO 0941 Tamsulosin HCl 0.4 MG DAILY 09/04 1334 AC 09/09 PO 0939 Trazodone HCl 37.5 MG AT BEDTIME 09/04 2200 AC 09/08 PO 2040 Last 24 Hrs of Lab/Carl Results Last 24 Hrs of Labs/Mics: Laboratory Tests 09/09/17 0630: Anion Gap 11, Estimated GFR > 60, BUN/Creatinine Ratio 51.4 H, CBC w Diff NO MAN DIFF REQ, RBC 4.95, MCV 83.1, MCH 26.9 L, MCHC 32.4 L, RDW 16.5 H, MPV 9.3, Gran % 78.2 H, Lymphocytes % 9.5 L, Monocytes % 11.6 H, Eosinophils % 0.3, Basophils % 0.4, Absolute Granulocytes 7.3 H, Absolute Lymphocytes 0.9 L, Absolute Monocytes 1.1 H, Absolute Eosinophils 0, Absolute Basophils 0 Assessment/Plan Assessment: This is an 87-year-old gentleman with a PMH of A. fib on eliquis, previous, HTN, HLD who resides at [facility] and was brought in due to recurrent falls. CT head: No acute intracranial normality. Chronic left putaminal infarct and background changes of moderate small vessel ischemia. Carotid ultrasound: Plaque present in internal carotid arteries, velocity measurements are normal no evidence to suggest hemodynamically significant stenosis greater than 50% diameter reduction. MRI brain on 09/05/2017: Area of acute infarction in the right basal ganglia and right periventricular region. No evidence of hemorrhage. Ventricles and sulci are commensurately prominent consistent with diffuse volume loss, and there are extensive chronic microvascular ischemic changes Problem list: #Right MCA territory subcortical ischemic stroke #Left sided pleural effusion #Right knee pain and swelling Plan: * Continue with aspiration precautions with head of elevation above 30%, neuro checks. Swallow evaluation with silent aspiration. Continue him on mechanical soft and nectar thick. * Has remained afebrile. * Patient underwent left-sided thoracentesis on 09/07/2017 with total of 1160 mL. Cytology shows WBC of 75, 3 RBCs, LDH 148, cholesterol <50, pleural pH of 7.48. Serum LDH 353 suggestive of transudate * Per neurology recommendations, repeat head CT was performed on 09/09/2017 which was negative for hemorrhagic conversion. * The patient was started on Eliquis * C/WCardizem 60 mg Q8 and monitor for 24 hours * Cipro eye drops to left eye * Consistent carbohydrate to diet. If patient has poor oral intake * Right knee x-ray to rule out any pathology including effusion/fracture * depending on the results patient may benefit from arthrocentesis * Being addressed by Eliquis * FC Problem List: 1. Stroke 2. Fall Pain Ratin Pain Location: Right knee Pain Goal: Pain 4 or less Pain Plan: PRN evaluation Tomorrow's Labs & Rationales: CBC to monitor H&H BEP to Monitor electrolytes Angeles,Arminlily 09/09/17 1046: Attending MD Review Statement Attending Statement Attending MD Statement: examined this patient, discuss w/resident/PA/COUNCILOR, agreed w/resident/PA/COUNCILOR, discussed with family, reviewed EMR data (avail), discussed with nursing, discussed with case mgmt, reviewed images, amended to note Attending Assessment/Plan: Patient seen/examined bedside. Vitals stable overnight. Routine eye care alongwith antibitoic drops for possible conjunctivitis. Patient with poor ambulation and function baseline. Large right sided pleural effusion with transudative nature. Await cytology. Repeat head CT today if negative for bleed can restart eliquis for anticoagulation. Patient is medically stable for discharge to [facility]. Update family. Case management aware. Follow up o/p PCP in 1 week of discharge. Cardiology in 2-3 weeks of discharge.
[2017-09-09 08:00] LABS: ABSOLUTE BASOPHIL COUNT 0 /CUMM (0.0-0.2); ABSOLUTE EOSINOPHIL COUNT 0 /CUMM (0.0-0.7); ABSOLUTE GRANULOCYTE CT 7.3 /CUMM (1.4-6.5); ABSOLUTE LYMPH COUNT 0.9 /CUMM (1.2-3.4); ABSOLUTE MONOCYTE COUNT 1.1 /CUMM (0.10-0.60); BASOPHIL % 0.4 % (0.0-2.0); EOSINOPHIL % 0.3 % (0-5); GRANULOCYTE % 78.2 % (42.2-75.2); HEMATOCRIT 41.1 % (42-52); MEAN CORPUSCULAR HGB 26.9 PG (27.0-31.0); MEAN CORPUSCULAR HGB CONC 32.4 G/DL (33.0-37.0); MEAN CORPUSCULAR VOLUME 83.1 FL (80.0-94.0); MEAN PLATELET VOLUME 9.3 FL (7.4-10.4); PLATELET COUNT 296 /CUMM (130-400); RBC DISTRIBUTION WIDTH 16.5 % (11.5-14.5); RED BLOOD CELL CT 4.95 /CUMM (4.70-6.10); WHITE BLOOD CELL COUNT 9.4 /CUMM (4.8-10.8)
--- NOTE | 2017-09-09 11:02 | CT SCAN REPORT ---
EXAMINATION: CT HEAD WITHOUT CONTRAST CLINICAL INFORMATION: Recent CVA. Assess for hemorrhage. COMPARISON: CT scan of the head 09/04/2017 and MRI scan of the brain 09/05/2017. TECHNIQUE: Contiguous axial imaging was performed from the skull base to vertex without intravenous administration of contrast. Images are degraded by positioning and patient motion artifact. DLP: 867.66 mGy-cm FINDINGS: There is an area of low attenuation in the right periventricular white matter, corresponding to the region of the acute infarct on the recent MRI scan. Low attenuation is noted in the periventricular and subcortical white matter, consistent with relatively extensive chronic microvascular ischemic changes. There are bilateral basal ganglia lacunar infarcts. There is no evidence of hemorrhage. The ventricles and sulci are commensurately prominent consistent with moderate diffuse volume loss. No abnormal mass effect or midline shift is seen. Carbajal to white matter differentiation is well preserved. No extra-axial fluid collections are identified. The osseous structures and soft tissues are normal. The mastoid air cells and visualized portions of the paranasal sinuses are well aerated. There is a right-sided bony nasal spur. There has been a right lens extraction. IMPRESSION: 1. The study demonstrates sequelae of the right periventricular acute infarct. There is diffuse volume loss and there are chronic microvascular ischemic changes and lacunar infarcts. 2. There are no acute bleeds or new territorial infarcts.
--- NOTE | 2017-09-09 12:03 | PN- Cardiology ---
Subjective Subjective: The patient continues to have left-sided weakness. No chest pain. No shortness of breath. No diaphoresis. No palpitations. No nausea or vomiting Objective Vital Signs and I&Os Vital Signs Date Time Temp Pulse Resp B/P B/P Pulse O2 O2 Flow FiO2 Mean Ox Delivery Rate 09/09 0939 82 140/66 09/09 0602 97.9 88 20 140/56 94 Room Air 09/09 0536 94 140/86 09/09 0000 Room Air 09/08 2322 97.5 98 18 150/66 94 Room Air 09/08 1656 102 150/80 09/08 1541 97.8 95 18 152/72 95 Intake & Output 09/09 1600 09/09 0800 09/09 0000 09/08 1600 09/08 0800 09/08 0000 Intake Total 110 120 410 Output Total Balance 110 120 410 Intake, IV 10 10 Intake, Oral 100 120 400 Number 1 Bowel Movements Patient 152 lb 151 lb Weight Weight Bed scale Measurement Method Physical Exam: Gen: The patient is in no acute distress HEENT: Normal nose, ears, and oropharynx. Pupils equal bilaterally. Conjunctiva normal. Neck: Supple with no JVD, no masses, and no thyromegaly Lungs: Clear to auscultation with normal respiratory effort Heart: Irregularly irregular, S1, S2, no murmurs. No peripheral edema, 2+ pulses in the lower extremities bilaterally Abdomen: Soft, nontender, no masses. No hepatomegaly. No splenomegaly Extremities: No clubbing or cyanosis. Left upper and lower externally weakness Skin: Normal skin turgor with no skin ulcers or lesions noted. Current Medications: Current Medications Sig/Jose Angel Start time Last Medication Dose Route Stop Time Status Admin Acetaminophen 325 MG Q6P PRN 09/07 1645 AC 09/07 PO 1808 Allopurinol 100 MG DAILY 09/04 1336 AC 09/09 PO 0942 Apixaban 5 MG BID 09/09 1114 AC PO Artificial Tears 2 GTT 4 TIMES/DAY 09/04 1400 AC 09/09 OPH 0931 Aspirin 81 MG DAILY 09/05 1000 AC 09/09 PO 0941 Atorvastatin Calcium 80 MG 1700 09/05 1700 AC 09/08 PO 1652 Ciprofloxacin 2 GTT Q2 09/08 1600 AC 09/09 OPH 09/10 2000 0929 Diltiazem HCl 60 MG Q8 09/07 1400 AC 04/13 PO 0536 Insulin Aspart 0 TIDAC 09/07 1700 AC 09/07 PA 1812 Magnesium Oxide 200 MG DAILY 09/04 1335 AC 09/09 PO 0941 Senna/Docusate Sodium 2 TAB DAILY 09/05 1000 AC 09/09 PO 0941 Tamsulosin HCl 0.4 MG DAILY 09/04 1334 AC 09/09 PO 0939 Trazodone HCl 37.5 MG AT BEDTIME 09/04 2200 AC 09/08 PO 2040 Results Last 48 Hrs of Labs/Mics: Laboratory Tests 09/09/17 0630: Anion Gap 11, Estimated GFR > 60, BUN/Creatinine Ratio 51.4 H, CBC w Diff NO MAN DIFF REQ, RBC 4.95, MCV 83.1, MCH 26.9 L, MCHC 32.4 L, RDW 16.5 H, MPV 9.3, Gran % 78.2 H, Lymphocytes % 9.5 L, Monocytes % 11.6 H, Eosinophils % 0.3, Basophils % 0.4, Absolute Granulocytes 7.3 H, Absolute Lymphocytes 0.9 L, Absolute Monocytes 1.1 H, Absolute Eosinophils 0, Absolute Basophils 0 09/08/17 0618: Anion Gap 12, Estimated GFR > 60, BUN/Creatinine Ratio 51.4 H, CBC w Diff NO MAN DIFF REQ, RBC 5.18, MCV 83.1, MCH 27.1, MCHC 32.7 L, RDW 16.3 H, MPV 9.6, Gran % 79.1 H, Lymphocytes % 7.6 L, Monocytes % 12.9 H, Eosinophils % 0.2, Basophils % 0.2, Absolute Granulocytes 7.5 H, Absolute Lymphocytes 0.7 L, Absolute Monocytes 1.2 H, Absolute Eosinophils 0, Absolute Basophils 0 Recent Imaging Studies: 1. The study demonstrates sequelae of the right periventricular acute infarct. There is diffuse volume loss and there are chronic microvascular ischemic changes and lacunar infarcts. 2. There are no acute bleeds or new territorial infarcts. Assessment/Plan Assessment/Plan Assessment: 1. Atrial fibrillation, apparently anticoagulated on Eliquis. Ventricular rate under control on oral diltiazem 2. Acute CVA 3. Bilateral carotid plaque 4. Elevated proBNP 5. Multiple falls 6. Right sided transudative pleural effusion, status post thoracentesis Plan: * Continue current cardiac medications * Eliquis on hold given acute CVA. Would restart Eliquis once cleared by neurology. Continue telemetry? Yes
[2017-09-09 14:56] VITALS: BP 120/62
--- NOTE | 2017-09-09 19:28 | RADIOLOGY REPORT ---
EXAMINATION: XR KNEE, RIGHT CLINICAL INFORMATION: 87-year-old male patient with sudden swelling and tenderness of the right knee. COMPARISON: None TECHNIQUE: 5 views of the right knee. 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 [id number] appearance involves the medial compartment. Marginal spurs are present. There is a small suprapatellar joint effusion. Extensive arterial vascular calcifications are also seen about the knee and upper leg. Surgical clips in the medial proximal soft tissues of the right leg secondary to prior meniscus surgery. IMPRESSION: Advanced osteoarthritis with small effusion. No fracture.
[2017-09-09] MEDS ORDERED: CARDIZEM60 M1 PO (20:09)
[2017-09-09] MEDS ORDERED: CILOXAN5 ML OPH (20:17)
[2017-09-09] MEDS ORDERED: ARTIFICIALS TEA30 ML OPH (20:19)
[2017-09-09 22:56] VITALS: BP 132/80
[2017-09-10] MEDS ORDERED: SENNA PLUS TAB1 EACH PO (00:11)
[2017-09-10 06:56] VITALS: BP 142/60
[2017-09-10 08:03] LABS: ABSOLUTE BASOPHIL COUNT 0 /CUMM (0.0-0.2); ABSOLUTE EOSINOPHIL COUNT 0.1 /CUMM (0.0-0.7); ABSOLUTE GRANULOCYTE CT 6.7 /CUMM (1.4-6.5); ABSOLUTE LYMPH COUNT 0.9 /CUMM (1.2-3.4); ABSOLUTE MONOCYTE COUNT 1.1 /CUMM (0.10-0.60); BASOPHIL % 0.4 % (0.0-2.0); EOSINOPHIL % 0.8 % (0-5); GRANULOCYTE % 75.4 % (42.2-75.2); HEMATOCRIT 41.3 % (42-52); MEAN CORPUSCULAR HGB 27.8 PG (27.0-31.0); MEAN CORPUSCULAR HGB CONC 33.2 G/DL (33.0-37.0); MEAN CORPUSCULAR VOLUME 83.8 FL (80.0-94.0); MEAN PLATELET VOLUME 9.6 FL (7.4-10.4); PLATELET COUNT 311 /CUMM (130-400); RBC DISTRIBUTION WIDTH 16.4 % (11.5-14.5); RED BLOOD CELL CT 4.93 /CUMM (4.70-6.10); WHITE BLOOD CELL COUNT 8.9 /CUMM (4.8-10.8)
--- NOTE | 2017-09-10 10:15 | PN- Att Addend ---
Attending Addendum Attending Brief Note Reports doing OK. no overnight issues Vital Signs Date Time Temp Pulse Resp B/P B/P Pulse O2 O2 Flow FiO2 Mean Ox Delivery Rate 09/10 0656 98.4 94 20 142/60 96 09/10 0000 Room Air 09/09 2256 99.5 100 16 132/80 94 Room Air 09/09 2255 110 132/80 09/09 1905 111 164/88 09/09 1600 Room Air 09/09 1456 98.0 103 20 120/62 95 Room Air Intake & Output 09/10 1600 09/10 0800 09/10 0000 Intake Total 0 170 Output Total Balance 0 170 Intake, IV 20 Intake, Oral 0 150 Patient 69.144 kg Weight GEN: awake and alert HEENT: + mild erytema around lower lid HEART: s1s2 Labs/Diagnostics: reviewed Mr. Cornejo is an 87-year-old gentleman with a PMH of A. fib on eliquis, HTN, HLD who resides at [facility] and was brought in due to recurrent falls. He was seen by cards and neuro. Repeat Head CT negative. s/p thoracocentesis, no growth. Rt Knee X-ray c/w adv osteo and small effusion, no fracture. Pt being d/c to [facility]. Family was updated by the team. F/u with providers as outpt
[2017-09-10 14:00] VITALS: BP 136/68
[2017-09-10 15:47] VITALS: BP 136/68
== END 2017-09-10 18:53 | DRG 65 ==
LOC: ERH 09:51 → ERHI 11:33 → 1NO 11:33 → ERH 12:07 → ENRESERV 12:19 → ENTRNSPT 13:30 → EDTRNSPT 13:31 → EDTRNSPTSTS 13:31 → EDTRNSPT 13:50 → 1NO 14:33 → CMPTRNSPT 14:46 → 1NO 09-06 16:16 → ENPENDDIS 09-10 14:25 → 1NO 09-10 18:53
PROVIDERS: Internal Medicine; Physician Assistant; Student in an Organized Health Care Education/Training Program
PROC: 0W993ZX Drainage of Right Pleural Cavity, Percutaneous Approach, Diagnostic (ICD-10-PCS; principal; 2017-09-07)
DX: I63.9 Cerebral infarction, unspecified (principal); G81.94 Hemiplegia, unspecified affecting left nondominant side; J90 Pleural effusion, not elsewhere classified; I48.2 Chronic atrial fibrillation; E11.9 Type 2 diabetes mellitus without complications; F03.90 Unspecified dementia, unspecified severity, without behavioral disturbance, psychotic disturbance, mood disturbance, and anxiety; I10 Essential (primary) hypertension; Z91.81 History of falling; E78.5 Hyperlipidemia, unspecified; H10.9 Unspecified conjunctivitis; Z99.3 Dependence on wheelchair; Z86.73 Personal history of transient ischemic attack (TIA), and cerebral infarction without residual deficits; M25.461 Effusion, right knee; M17.11 Unilateral primary osteoarthritis, right knee; I65.23 Occlusion and stenosis of bilateral carotid arteries; Z79.01 Long term (current) use of anticoagulants; Z79.84 Long term (current) use of oral hypoglycemic drugs; Z88.8 Allergy status to other drugs, medicaments and biological substances; Z85.46 Personal history of malignant neoplasm of prostate
CPT/HCPCS: 1NP; 70551; 87075; 36592; 71045; 73030-LT; 73080-LT; 73562-RT; 74230; 82436; 93005; 93010; 97166-GO; 99291; J0360; J1815; J3490; J7042